=== PATIENT | female | born 1985 | race Caucasian/White ===

== ENCOUNTER → 2021-04-20 07:50 | Outpatient (CLI) | payer OTHER, BC, SELFPAY ==
--- NOTE | ~2021-04-20 | MR_ITS ---
EXAMINATION: MR foot RT wo/w con DATE: 04/20/2021 08:54 INDICATION: Right foot pain TECHNIQUE: Magnetic resonance imaging (MRI) of the right fore/mid foot was performed without intraven ous contrast. Sequences included axial, sagittal and coronal T1-weighted FSE, axial and coronal T2-we ighted FS FSE, sagittal fluid sensitive FSE STIR, axial T1-weighted FS FSE and postcontrast axial, sa gittal and coronal T1-weighted FS FSE. COMPARISON: None FINDINGS: Bone alignment is normal. Normal marrow signal throughout with no fracture, reactive edema or patholo gic marrow replacing process. Joint spaces appear relatively preserved with no joint effusions or syn ovitis. No enhancing erosions or other abnormal enhancing lesions. Lisfranc ligament complex as well as the collateral ligament complex at the metatarsophalangeal and interphalangeal joint spaces are no rmal. Visualized portions of the flexor and extensor tendons are normal. The marker indicating the re gion of maximal pain situated dorsal to the base of the first and second metatarsals. IMPRESSION: 1. Unremarkable MRI of the right foot. No etiology identified for right foot pain. Reviewed, dictated and finalized at location A. MANAGER IMPRESSION: 1. Unremarkable MRI of the right foot. No etiology identified for right foot pa in.
[2021-04-20 08:13] LABS: Estimated Glomerular Filt Rate > 60
== END ==
PROVIDERS: Visit Provider Podiatrist Foot & Ankle Surgery
DX: M79.671 Pain in right foot (principal)
CPT/HCPCS: 73720; A9577

== ENCOUNTER 2022-11-25 00:05 | Day surgery (SDC) | payer OTHER, BC, SELFPAY ==
[2022-11-18 15:25] VITALS: BMI 30.2
--- NOTE | 2022-11-18 15:33 | PC.NURSE ---
Report to the Outpatient Waiting Room, entrance under the green pavilion located off [facility], at time _0600_ on date 11/25/22_. Planned Procedure Time: _0730__. Time changes happen often and if your time is changed the preop area will call you the afternoon before. - You and your visitor will be asked to self-screen and do not enter if you have any COVID symptoms. - A mask is optional within the hospital at this time. Patients may have clear liquids (water, carbonated beverages, clear teas, apple juice) until 3 hours prior to surgery with a maximum of 20 ounces. - No food from midnight until time of surgery - Infants may have breast milk until 4 hours before surgery, infant formula 6 hours prior to surgery. - Children will be allowed to drink immediately following surgery. If applicable, please bring a bottle or sippy cup to assist with drinking. Juice, water, soda, and popsicles are readily available. For infants on formula, please bring formula the day of surgery. Pacifiers are allowed. Take the following medications with a SIP of water the morning of surgery: __BUPROPION, FLUOXETINE DO NOT STOP ANY OF YOUR OTHER PRESCRIPTION MEDICATIONS PRIOR TO SURGERY ?EXCEPT THE FOLLOWING Medications to discontinue per physician NONE Date to take last dose Please no make-up, nail urdu, hairspray, perfume, deodorant, or body powder the day of surgery. No jewelry (including any body piercings) or valuables the day of surgery, leave them at home. Please take a shower or bath the night before, or the morning of, surgery with an antibacterial soap. Wear comfortable, loose fitting clothing. Children are encouraged to wear pajamas. - Jewelry must be removed prior to entering the operating room. Rings and piercings that are not removed may be cut off. - The hospital will not accept responsibility for valuables. - Please leave all valuables, including medications, at home the day of surgery. If you are going home after surgery, a licensed local company flatbed truck driver must drive you home. - NO public transportation without another adult if you receive anesthesia. - We recommend that an adult stay with you for 24 hours following discharge. - We also recommend that you do not drive, make important decision, drink alcoholic beverages, or take any drugs that were not prescribed by your health care provider for at least 24 hours after your discharge time. For Pediatric surgeries, we recommend two adults accompany the child home. Follow any additional instructions given to you from your surgeon. If you or anyone in your household have experienced Covid symptoms in the past week, please notify your surgeon or the nurse liaison at the phone number below for possible testing. Telephone instructions given to PATIENT_and asked if any additional questions and then verbalized understanding. Patient advised to call surgeon office or pre surgery nurse liaison [phone] if any additional questions.
--- NOTE | 2022-11-24 16:28 | PM.IMHP ---
H&P: HPI History of Present Illness Date/Time: 11/24/22 16:28 7-year-old 2 para 2003 female presents for definitive treatment of heavy vaginal bleeding cramping clotting. She has been on control pills, though she has any increasing headaches and therefore we would like to have her come off that. We had discussed in the IUD but she does not desire. Therefore will proceed with hysteroscopy with endometrial ablation. She has had a tubal ligation in the past. Chief Complaint: Menometrorrhagia Review of Systems Review of Systems: All systems reviewed & are unremarkable except as noted in HPI and below PMFSH Past Medical History Medical History Anxiety Carpal tunnel syndrome, right upper limb Dizziness Heartburn IBS (irritable bowel syndrome) rx meds Surgical History Surgical History History of tubal ligation Family History Family History Mother Breast cancer Hypertension Grandparent Diabetes mellitus maternal grandfather Hypertension maternal grandmother Malignant neoplasm of lung paternal grandfather Malignant neoplasm of bone paternal grandmother Pulmonary embolism maternal grandmother Father Blood disorder Depression Social History Social History Smoking status: Never smoker Alcohol intake: current Alcohol use details: 2 PER MONTHS Substance use: never Substance use type: does not use Living arrangements: with family Additional living arrangements comments: 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/Education: 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 Gender identity (if verbalized by the patient): Female Sexual Orientation (if Verbalized by the Patient): Straight or Heterosexual Meds Home Medications and Allergies Home Medications Medication Instructions Recorded Confirmed Type pantoprazole 40 mg tablet,delayed 40 mg PO QAM PRN Acid Reflux 05/26/21 11/18/22 History release bupropion HCl 300 mg 24 hr tablet, 300 mg PO DAILY 11/18/22 11/18/22 History extended release eluxadoline 75 mg tablet (Viberzi) 75 mg PO DAILY 11/18/22 11/18/22 History fluoxetine 20 mg capsule 20 mg PO DAILY 11/18/22 11/18/22 History Allergies Allergy/AdvReac Type Severity Reaction Status Date / Time No Known Allergies Allergy Verified 11/18/22 15:22 Exam Const: General: cooperative and healthy appearing Resp: Effort & Inspection: normal respiratory effort Auscultation: clear to auscultation bilaterally Cardio: Rate: regular rate Rhythm: regular rhythm GI: Inspection: normal to inspection Auscultation: normal bowel sounds : External Female Exam: normal external appearance Speculum Exam - Vagina: normal appearance of the vagina Speculum Exam - Cervix: normal appearance of the cervix Bimanual exam- vagina & uterus: enlarged (8-10 week size) Bimanual Exam- Adnexa, other: normal adnexae Assessment and Plan Assessment and plan (1) Irregular bleeding: Code(s): N92.6 - Irregular menstruation, unspecified Status: Acute Assessment and Plan: Proceed with hysteroscopy with D&C Proceed with endometrial ablation
[2022-11-25 06:36] VITALS: BP 127/75; PULSE 80; RESP 16; TEMP 36.6; O2SAT 98
--- NOTE | 2022-11-25 06:53 | P.PNAN_ITS ---
Anes - Initial Pre Proc Eval Procedure: Operation Date: 11/25/22 08:30 Proposed Procedures p Hysteroscopy Dilation and Curettage with Shefali Endometrial Ablation - Vidal Lee MD Date/Time: 11/25/22 06:53 Surgeon: Vidal Lee MD Pre Op Diagnosis: Irg Bleeding Patient Data Age: 37 Gender: F Height: 1.63 m Weight: 80 kg Allergies Allergy/AdvReac Type Severity Reaction Status Date / Time No Known Allergies Allergy Verified 11/18/22 15:22 Home Medications Medication Instructions Recorded Confirmed Type pantoprazole 40 mg tablet,delayed 40 mg PO QAM PRN Acid Reflux 05/26/21 11/18/22 History release bupropion HCl 300 mg 24 hr tablet, 300 mg PO DAILY 11/18/22 11/18/22 History extended release eluxadoline 75 mg tablet (Viberzi) 75 mg PO DAILY 11/18/22 11/18/22 History fluoxetine 20 mg capsule 20 mg PO DAILY 11/18/22 11/18/22 History Patient hx anesthesia problems: none Family hx anesthesia problems: none Results Review: All pre-operative results and documents have been reviewed as part of the pre- operative evaluation. [facility] Past Medical History Medical History Anxiety Carpal tunnel syndrome, right upper limb Dizziness Heartburn IBS (irritable bowel syndrome) rx meds Surgical History Surgical History History of tubal ligation Family History Family History Mother Breast cancer Hypertension Grandparent Diabetes mellitus maternal grandfather Hypertension maternal grandmother Malignant neoplasm of lung paternal grandfather Malignant neoplasm of bone paternal grandmother Pulmonary embolism maternal grandmother Father Blood disorder Depression Social History Social History Smoking status: Never smoker Alcohol intake: current Alcohol use details: 2 PER MONTHS Substance use: never Substance use type: does not use Living arrangements: with family Additional living arrangements comments: 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/Education: 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 Gender identity (if verbalized by the patient): Female Sexual Orientation (if Verbalized by the Patient): Straight or Heterosexual Anes - Eval Final PreProcedure Day of Procedure 11/25/22 06:53 Patient weight: obese Heart: regular rate and rhythm Lungs: clear to auscultation Airway: Mallampati scale class II Neurological: alert and oriented Last oral intake: >/= 8 hours ASA classification: II Emergent: no Anesthetic plan: proceed Anesthesia type and monitoring: general GIVS and standard monitoring Results Review: All pre-operative results and documents have been reviewed as part of the pre- operative evaluation. Informed Consent: The patient's anesthetic plan and its attendant risks and benefits were discussed with the patient/family/POA. Questions were solicited and answers provided to the satisfaction of the patient/family/POA.
[2022-11-25] MEDS: ACETAMINOPHEN 500 MG TABLET 1000 MG PO (07:11)
[2022-11-25] MEDS: LACTATED RINGERS 1,000 ML 30 ML IV CONT (07:11)
[2022-11-25 07:16] LABS: Hematocrit 37.6 % (37.0-47.0); Hemoglobin 12.5 g/dL (12.0-15.0); Mean Corpuscular HGB Conc 33.2 g/dl (32-36); Mean Corpuscular Hemoglobin 30.4 pg (26-34); Mean Corpuscular Volume 91.5 fl (80-100); Mean Platelet Volume 11.6 fl (7.4-10.4); Platelet Count Result 205 k/mm3 (150-375); Red Blood Count 4.11 M/mm3 (4.2-5.4); Red Cell Distribution Width 11.8 % (11.5-14.5); White Blood Count 5.6 K/mm3 (4.5-10.0)
--- NOTE | 2022-11-25 08:31 | WPDHPUPDATE1 ---
History and Physical Update Update Date/Time: 11/25/22 08:31 History and Physical has been reviewed, including an updated exam of the patient. There are NO changes in the patient's condition. Risks, benefits, and alternatives have been discussed and questions answered. Patient agrees to proceed with procedure.
[2022-11-25] MEDS: ceFAZolin SODIUM 1 GM VIAL 2 GM IV PUSH (09:00)
--- NOTE | 2022-11-25 09:13 | W.PM.PROC2 ---
Procedure Note - Detailed Date of Procedure 11/25/22 Pre-op Diagnosis Irregular menstrual bleeding Post-op Diagnosis Same Procedure Performed 1. Hysteroscopy with uterine curettings 2. Endometrial ablation Surgeon Vidal Lee MD Anesthesia MAC Description of Procedure Patient prepped and draped usual manner for this procedure. Hysteroscope was placed with thickened tissue noted. Curettings were obtained and then the ablation instrument was placed cavity assessment performed instrument activated. At the end of the cycle hysteroscope was get place with destruction noted throughout. Patient tolerated procedure well was sent to recovery room in stable condition. Estimated Blood Loss 10 Drains No Packing No Pathology Yes Complications No immediate complications Condition Stable Disposition PACU [facility] Billing Surgery - Charge Forward: Surgery Billing
[2022-11-25 09:16] VITALS: BP 107/60; PULSE 75; RESP 14; O2SAT 99
[2022-11-25 09:45] VITALS: BP 104/60; PULSE 60; RESP 14; O2SAT 100
[2022-11-25] MEDS: oxyCODONE HCL (*CRX) 5 MG TAB IR PO (10:05)
[2022-11-25 10:15] VITALS: BP 112/66; PULSE 60; RESP 14
== END 2022-11-25 10:35 | disposition home or self-care (01) ==
PROVIDERS: PCP Internal Medicine; Visit Provider Obstetrics & Gynecology
PROC: 0U5B8ZZ Destruction of Endometrium, Via Natural or Artificial Opening Endoscopic (ICD-10-PCS; CPT 58563; principal; 2022-11-25 08:30)
DX: N92.6 Irregular menstruation, unspecified (principal); F41.9 Anxiety disorder, unspecified; K58.9 Irritable bowel syndrome, unspecified; E66.9 Obesity, unspecified; Z68.30 Body mass index [BMI] 30.0-30.9, adult
CPT/HCPCS: 58563; 36415; 85027; 88305; A9270; J0690; J1885; J2250; J2704; J3010; J7120

== ENCOUNTER 2024-02-15 15:50 | Outpatient (CLI) | payer OTHER, SELFPAY ==
--- NOTE | ~2024-02-15 | MM_ITS ---
EXAMINATION: MM screening ingrid BI w promise HISTORY: Screening TECHNIQUE: Craniocaudal and mediolateral oblique 3-D tomosynthesis images were obtained and synthetic 2-D images were generated. CAD analysis was submitted and interpreted. COMPARISON: No prior mammogram is available for comparison at this institution. BREAST PARENCHYMAL COMPOSITION: Dense: The breasts are heterogeneously dense, which may obscure small masses FINDINGS: There is no evidence of suspicious mass, calcification, or architectural distortion to sugg est malignancy in either breast. There has been no suspicious interval change. IMPRESSION: 1. No mammographic evidence of malignancy. 2. Recommend routine screening mammography in one year. BI-RADS Category 1: Negative Reviewed, dictated and finalized at location B. GER OF SUPPLY CHAIN
== END 2024-02-15 15:51 | disposition home or self-care (01) ==
LOC: MICIMG 15:51
PROVIDERS: PCP Internal Medicine; Visit Provider Obstetrics & Gynecology
DX: Z12.31 Encounter for screening mammogram for malignant neoplasm of breast (principal)
CPT/HCPCS: 77063; 77067

== ENCOUNTER 2025-02-04 16:31 | Outpatient (CLI) | payer OTHER, SELFPAY ==
--- OUTSIDE RECORDS SUMMARY | 2025-02-04 19:32 | XMS_ITS | Clinical Summary ---
Author Organization [facility]CLUD[facility] Address [address] [place] [id number] Care Team Providers Care Can Piler Name Role Phone Unavailable Primary Care Provider Unavailabl e Encounters Date Type Department Care Team Description 12/18/2024 External Device Data [facility] ABSTRACTION Provider, Abstract from Last 3 Months Social History Tobacco Use Types Packs/Day Years Used Date Smoking Tobacco: Never Assessed Comments Unknown Sex and Gender Information Value Date Recorded Sex Assigned at Not on file Legal Sex Female 10:02 AM CDT Gender Identity Not on file Sexual Orientation Not on file Plan of Treatment Health Maintenance Due Date Last Done Comments DTAP/TDAP/TD VACCINES (1 - Tdap) 08/12/2002 HEPATITIS B VACCINES (1 of 3 - 19+ 3-dose series) 08/12/2002 HPV/Cotest (21-29) 08/12/2004 CERVICAL CANCER SCREENING 08/12/2013 HPV/Cotest (30-65) 08/12/2013 PAP SMEAR 08/12/2013 BREAST CANCER SCREENING 2023 INFLUENZA VACCINE (#1) 2024 2, 11/24/2019, 02/19/2016, Additional history exists HPV VACCINES (No Doses Required) Completed Insurance [facility] INDIVIDUAL EXCHANGE [id number] [facility]
--- OUTSIDE RECORDS SUMMARY | 2025-02-04 19:32 | XMS_ITS | Clinical Summary ---
Author Organization [place] [id number] [place] Address [address] [place] [id number] Care Team Providers Care Beam Builder Name Role Phone Ronnie Sargent MD Primary Care Provider Allergies No known active allergies Medications gabapentin (NEURONTIN) 300 mg capsule GABAPENTIN 300 MG ORAL CAPSULE 0 Active levonorgestrel & ethinyl estradiol (AMETHIA) 0.15 mg-30 mcg tablets,dose pack,3 month 1 Active meclizine (ANTIVERT) 25 mg tablet Take 1 tablet (25 mg total) by mouth 3 (three) times a day as needed 7 Active omeprazole (PriLOSEC) 20 mg capsule [address] (PROTONIX) 40 mg EC tablet 1 Active venlafaxine XR (EFFEXOR-XR) 75 mg 24 hr capsule 1 Active buPROPion XL (WELLBUTRIN XL) 300 mg 24 hr tablet 4 Active Viberzi 75 mg tablet Take 1 tablet by mouth 4 Active FLUoxetine (PROzac) 20 mg capsule 4 Active Active Problems No known active problems Social History Tobacco Use Types Packs/Day Years Used Date Smoking Tobacco: Never Assessed Comments Unknown Sex and Gender Information Value Date Recorded Sex Assigned at Not on file Legal Sex Female 1:57 AM WEB DEVELOPMENT INTERN Gender Identity Not on file Sexual Orientation Not on file Last Filed Vital Signs Vital Sign Reading Time Taken Comments Blood Pressure 140/80 09/13/2023 11:00 AM CDT Pulse 86 09/13/2023 11:00 AM CDT Temperature 36.9 C (98.4 F) 09/13/2023 11:00 AM CDT Respiratory Rate 20 09/13/2023 11:00 AM CDT Oxygen Saturation 98% 09/13/2023 11:00 AM CDT Inhaled Oxygen Concentration - - Weight 77.1 kg (170 lb) 09/13/2023 11:00 AM CDT Height 175.3 cm (5' 9) 09/13/2023 11:00 AM CDT Body Mass Index 25.1 09/13/2023 11:00 AM CDT Plan of Treatment Health Maintenance Due Date Last Done Comments Breast Cancer Screening-Mammogram 1985 Cervical Cancer Screening 1985 Depression Screening 1985 Hepatitis C Screening 1985 DTaP/Tdap/Td Vaccine (1 - Tdap) 08/12/1994 Varicella Vaccines (1 of 2 - 13+ 2-dose series) 08/12/1996 Hepatitis B Screening 08/12/2001 Regular Well Visit/Exam 18-64 08/12/2001 HPV Vaccines (1 - 3-dose SCDM series) 08/12/2010 Covid-19 Vaccine (3 - 2024- season) 2024 05/17/2020, 04/19/2020 Influenza Vaccine (#1) 2024 , 11/24/2019, 12/27/2018, Additional history exists Pneumococcal vaccine <65 Aged Out No longer eligible based on patient's age to complete this topic Insurance [facility] CHOICE PLUS [facility] CHOICE OOS Member Subscriber Plan / Payer (Ef fective 2022-Present) Name:Maxim Adenha Relation to Subscriber:Spouse Name:LA ADEN Date of :1983 (Home) Address: [address] [place] [address] Payer ID:[id number] (NAIC) Type:[facility] Address: [address] [place] [id number] Care Teams Beam Builder Relationship Specialty Start Date End Date Ronnie Sargent MD [id number] [facility] [place] [address] PCP - General Internal Medicine 09/13/23
--- OUTSIDE RECORDS SUMMARY | 2025-02-04 19:34 | XMS_ITS | Clinical Summary ---
Author Organization [facility] Address [address] [place] [address] Care Team Providers Care Tool Adjuster Name Role Phone Unavailable Primary Care Provider Unavailabl e Source Comments [facility],non-owned Affiliates and Associated Physician Practices is amultiple site organization consisting of ambulatory clinics and hospital sitesin [place], [place], [place] and [place]. This disclosure is being madepursuant to the Care Everywhere program and may not contain all information available regarding this patient. Last updated 17.[facility] Allergies No known active allergies Medications * Be aware that medications may not be up to date on this document. Alwaysverify current medications with the patient. venlafaxine (EFFEXOR) 37.5 MG tablet Take 75 mg by mouth 3 times daily with meals Active amoxicillin (AMOXIL) 500 MG capsule Take 500 mg by mouth every 8 hours Active meclizine (ANTIVERT) 25 MG tablet Take 1 Tab by mouth 3 times daily as needed for Dizziness 20 Tab 7 Active aspirin-acetami nophen-caffeine 250-250-65 MG tablet Take 1 Tab by mouth every 4 hours as needed for Headache 20 Tab 7 Active Immunizations Immunization Administration Dates Next Due FLU VACCINE QUAD IIV4 PF ID 02/19/2016 Social History Tobacco Use Types Packs/Day Years Used Date Smoking Tobacco: Never Smokeless Tobacco: Never Comments Unknown Sex and Gender Information Value Date Recorded Sex Assigned at Not on file Legal Sex Female 10:29 AM SUPERVISORY FORESTER Gender Identity Not on file Sexual Orientation Not on file Last Filed Vital Signs Vital Sign Reading Time Taken Comments Blood Pressure 96/68 04/16/2017 2:45 PM SUPERVISORY FORESTER Pulse 87 04/16/2017 2:45 PM SUPERVISORY FORESTER Temperature 36.8 C (98.2 F) 04/16/2017 2:45 PM SUPERVISORY FORESTER Respiratory Rate 16 04/16/2017 2:45 PM SUPERVISORY FORESTER Oxygen Saturation 98% 04/16/2017 2:45 PM SUPERVISORY FORESTER Inhaled Oxygen Concentration - - Weight 74.8 kg (165 lb) 04/16/2017 2:45 PM SUPERVISORY FORESTER Height 162.6 cm (5' 4) 04/16/2017 2:45 PM SUPERVISORY FORESTER Body Mass Index 28.32 04/16/2017 2:45 PM SUPERVISORY FORESTER Plan of Treatment Health Maintenance Due Date Last Done Comments LIPID TESTING 1985 MAMMOGRAM 1983 HIV SCREENING 08/12/1998 HEPATITIS C SCREENING 08/08/2001 DTAP/TDAP/TD VACCINES (1 - Tdap) 08/12/2002 HEPATITIS B VACCINE (1 of 3 - 19+ 3-dose series) 08/12/2002 PAP SMEAR 08/12/2004 HPV VACCINE (1 - 3-dose SCDM series) 08/12/2010 DEPRESSION SCREENING 02/29/2024 COVID-19 VACCINE (1 - 2024-2 6 season) 2024 INFLUENZA VACCINE (#1) 2024 7, 02/19/2016 ZOSTER VACCINE (1 of 2) 08/12/2033 HIB VACCINE Aged Out No longer eligi ble based on patient's age to complete this topic MENINGOCOCCAL (Group B) VACCINE SHARED DECISION-MAKING Aged Out No longer eligible based on patient's age to complete this topic MENINGOCOCCAL GROUPS A/C/Y/W VACCINE Aged Out No longer eligible b ased on patient's age to complete this topic PNEUMOCOCCAL VACCINE Aged Out No long er eligible based on patient's age to complete this topic Insurance [facility] [place] [address] [facility]
--- OUTSIDE RECORDS SUMMARY | 2025-02-04 19:34 | XMS_ITS | Encounter Summary ---
Author Organization [facility] Address [address] [place] [address] Care Team Providers Care Bear Keeper Name Role Phone Unavailable Primary Care Provider Unavailabl e Encounter Details Date Type Department Care Team (Late st Contact Info) Description 03/11/2023 Lab Requisition [facility] [address] [place] [address] Vaughn Matias MD [address] [place] [address] Social History Tobacco Use Types Packs/Day Years Used Date Smoking Tobacco: Never Smokeless Tobacco: Never Comments Unknown Sex and Gender Information Value Date Recorded Sex Assigned at Not on file Legal Sex Female 10:29 AM [employer] Gender Identity Not on file Sexual Orientation Not on file documented as of this encounter Plan of Treatment Not on file documented as of this encounter Procedures Procedure Name Priority Date/Time Associated Diagnosis Comments DERMATOPATHOLOGY Routine 03/09/2023 12:0 0 AM [employer] documented in this encounter Results * DERMATOPATHOLOGY (03/09/2023 12:00 AM [employer]) Case Report Dermatopathology Report Case: [id number] Authorizing Provider: Vaughn Matias MD Collected: 03/09/2023 12:00 AM Ordering Location: [facility] D[facility] Lab Received: 03/11/2023 04:37 PM Pathologist: Arnold Alaniz MD Specimen: Skin, epigastrium 4:15 PM [facility] [facility] DERMATOPATHOLOGY LABORATORY Final Diagnosis Specimen A. SKIN, epigastrium: EPIDERMOID CYST (L72.0) 4:15 PM [facility] DERMATOPATHOLOGY LABORATORY at [address] [employer] Clinical History R/O Epidermal Inclusion Cyst vs other Neoplasm. Check Margin 4:15 PM [facility] DERMATOPATHOLOGY LABORATORY Gross Description Specimen A: Received is one formalin filled container labeled with the patient's name and designated epigastrium. The specimen consists of a piece of skin 8x8x9 mm. The margin is inked green. The specimen is bisected lengthwise and submitted in 1 cassette. Jar 0. 4:15 PM [facility] DERMATOPATHOLOGY LABORATORY Microscopic Description Specimen A. SKIN, epigastrium: Within the dermis, there is a space lined by epithelium that resembles normal epidermis and the infundibular portion of the hair follicle. 4:15 PM [facility] DERMATOPATHOLOGY LABORATORY Disclaimer An external and internal positive and negative controls are appropriate for the histochemical, immunohistochemical and immunofluorescence stain(s) in this case (if any), except where stated explicitly. The performance characteristics of the stain(s) cited in this report were developed and its performance characteristic determined by the Dermatopathology Laboratory at [facility], directed by Dr. Mundo Alaniz. These tests need not be, and therefore are not, approved by the [place] Food and Drug Administration. The tests are used for clinical purposes. Billing Codes Specimen Charges Stain Charges 10944 1 4:15 PM [facility] DERMATOPATHOLOGY LABORATORY Embedded Images 4:15 PM [facility] DERMATOPATHOLOGY LABORATORY Pathology/Cytolog y TISSUE SPECIMEN FROM SKIN / Unknown 03/09/2023 03/11/2023 4:37 PM [employer] us Vaughn Matias MD LAB - PATHOLOGY/CYTOLOGY ORD ERABLES Final Result DERMATOPATHOLOGY LABORATORY [facility] - Department of Dermatology [address] [place] [address], [facility] [phone] documented in this encounter Visit Diagnoses Not on filedocumented in this encounter
--- OUTSIDE RECORDS SUMMARY | 2025-02-04 19:34 | XMS_ITS | Data Portability ---
[facility] Organization [facility] Address [address] [place] [address] Assessment No assessment recorded. Plan of Treatment Reminders Order Date Submit Date Provider Last Modified By Organization Details Last Modified Time Details Appointments None recorded . Lab pap, IG + HPV, cervical 2018 019 CORRIGAN [facility], 2022 Jon Frye, Carlos [facility], [place], [address], 9 16:09:06 urinalys is, dipstick 2018 019 [email or web address] In-Office Order, Internal Use Only DO Not Attach Compendium DO Not Attach Compendium, Do Not Delete/merge, [id number] 9 17:33:23 bacteria l vaginosi s panel, vaginal 2018 019 NATALIA [facility] (Centralized Electronic Ordering - All Locations), Patient Can Go To The Location Of Their Choice, [id number] 9 16:09:32 culture, vaginal/ rectal, streptoc occus group B 2018 019 NATALIA [facility] (Centralized Electronic Ordering - All Locations), Patient Can Go To The Location Of Their Choice, [id number] 9 16:09:33 urinalys is, dipstick 2016 017 ricarda In-Office Order, Internal Use Only DO Not Attach Compendium DO Not Attach Compendium, Do Not Delete/merge, [id number] 7 16:37:12 pregnanc y test, urine 2016 017 ricarda In-Office Order, Internal Use Only DO Not Attach Compendium DO Not Attach Compendium, Do Not Delete/merge, [id number] 7 16:37:12 pregnanc y test, urine 2015 016 ricarda In-Office Order, Internal Use Only DO Not Attach Compendium DO Not Attach Compendium, Do Not Delete/merge, [id number] 6 18:14:26 bacteria l vaginosi s + vaginiti s panel, vaginal - Please send copy of results via fax to [facility] at 2014 015 [email or web address], [address] [place] [address], [address], [place], [address], 6 12:10:48 HSV (1+2) DNA, qual, PCR, unspecif ied specimen - Please send copy of results via fax to [facility] at [phone] 2014 015 [email or web address], [address] [place] [address], [address], [place], [address], 6 12:10:48 culture, vaginal/ rectal, streptoc occus group B - Please send copy of results via fax to [facility] at 2014 015 [email or web address], [address] [place] [address], [address], [place], [address], 6 12:10:49 pap, IG + HPV, cervical 2014 015 [email or web address], [address] [place] [address], [address], [place], [address], 6 12:10:49 pregnanc y test, urine 2015 015 [email or web address] In-Office Order, Internal Use Only DO Not Attach Compendium DO Not Attach Compendium, Do Not Delete/merge, [id number] 6 07:53:40 Referral None recorded . Procedures None recorded . Surgeries None recorded . Imaging None recorded . Medication Orders multivit crooks tablet 2018 019 [facility], [address] [place], [address], 9 17:03:08 Calcium with Vitamin D 600 mg-10 mcg (400 unit) tablet 2018 019 [facility], [address] [place], [address], 9 17:03:10 Seasoniq ue 0.15 mg-30 mcg (84)/10 mcg(7) tablets, 3 month dose pack 2018 019 [facility], [address] [place], [address], 9 17:02:57 Linzess 145 mcg capsule 2016 017 [facility], [address] [place], [address], 9 16:21:[address] Fe 1-20 (5)/1-30 (7)/1mg- 35mcg(9) tablet 2016 017 [facility], [address] [place], [address], 9 16:21:20 Linzess 145 mcg capsule 2015 016 [facility], [address] [place] [address], [address], [id number], 9 16:21:11 Lybrel (28) 90 mcg-20 mcg tablet 2015 016 [place] [address] [facility], [address] [place] [address], [facility] [address], [place], [id number], 7 16:05:40 Linzess 145 mcg capsule 2014 015 [facility], [address] [place], [address], 9 16:21:11 Patient TargetsNo targets recorded. Patient Instructions Encounter Date Encounter Id Patient Instructions Last Modified By Organization Details Last Modified Time 02/25/2015 [id number] constipation: care instructions Not available 03/07/2015 12:10:49 intrauterine device (IUD) insertion: care instructions Not available 03/07/2015 12:10:49 Patient to decid e if she wants Tubal Sterilization or new IUD replacement mwasserman Not available 02/25/2015 21:27:56 03/31/2015 [id number] irritable bowel syndrome: care instructions mwasserman Not available 03/31/2015 18:14:26 01/13/2017 [id number] influenza (flu) vaccine: care instructions Not available 01/14/2017 11:21:45 irritable bowel syndrome: care instructions Not available 01/13/2017 17:06:24 Reason for Referral None Reported. Results Created Date Observation Date Name Description Value Unit Range Abnormal Flag Note LastModifiedBy Organization Detail LastModifiedTime 01/17/2001/16/2019 urina lysis , dipst ick Leukocytes Negati ve Not Available In-Office Order Internal Use Only DO Not Attach Compendium DO Not Attach Compendium, Do Not Delete/merge, [id number] 01/16/2019 16:47:42 01/17/2001/16/2019 urina lysis , dipst ick Nitrite positi ve Not Available In-Office Order Internal Use Only DO Not Attach Compendium DO Not Attach Compendium, Do Not Delete/merge, [id number] 01/16/2019 16:47:42 01/17/20 19 01/16/2019 urina lysis , dipst ick Urobilinogen 1 Not Available In-Of fice Order Internal Use Only DO Not Attach Compendium DO Not Attach Compendium, Do Not Delete/merge, [id number] 01/16/2019 16:47:42 01/17/2001/16/2019 urina lysis , dipst ick Protein Negati ve Not Available In-Office Order Internal Use Only DO Not Attach Compendium DO Not Attach Compendium, Do Not Delete/merge, [id number] 01/16/2019 16:47:42 01/17/2001/16/2019 urina lysis , dipst ick pH 6.5 Not Available In-Office Order Internal Use Only DO Not Attach Compendium DO Not Attach Compendium, Do Not Delete/merge, 01/16/2019 16:47:42 01/17/2001/16/2019 urina lysis , dipst ick Blood Non-He molyze d: Trace Not Available In-Office Order Internal Use Only DO Not Attach Compendium DO Not Attach Compendium, Do Not Delete/merge, 01/16/2019 16:47:42 01/17/20 19 01/16/2019 urina lysis , dipst ick Specific [place] 1.020 Not Available In-Off ice Order Internal Use Only DO Not Attach Compendium DO Not Attach Compendium, Do Not Delete/merge, 01/16/2019 16:47:42 01/17/20 19 01/16/2019 urina lysis , dipst ick Ketone Negati ve Not Available In-Office Order Internal Use Only DO Not Attach Compendium DO Not Attach Compendium, Do Not Delete/merge, 01/16/2019 16:47:42 01/17/20 19 01/16/2019 urina lysis , dipst ick Bilirubin Negati ve Not Available In-Office Order Internal Use Only DO Not Attach Compendium DO Not Attach Compendium, Do Not Delete/merge, 01/16/2019 16:47:42 01/17/2001/16/2019 urina lysis , dipst ick Glucose Negati ve Not Available In-Office Order Internal Use Only DO Not Attach Compendium DO Not Attach Compendium, Do Not Delete/merge, [id number] 01/16/2019 16:47:42 01/14/20 17 01/13/2017 pregn alyssa test, urine HCG negati ve Not Available In-Office Order Internal Use Only DO Not Attach Compendium DO Not Attach Compendium, Do Not Delete/merge, [id number] 01/13/2017 16:06:27 01/14/20 17 01/13/2017 urina lysis , dipst ick Leukocytes Trace Not Available In-Offi ce Order Internal Use Only DO Not Attach Compendium DO Not Attach Compendium, Do Not Delete/merge, [id number] 01/13/2017 16:05:47 01/14/20 17 01/13/2017 urina lysis , dipst ick Nitrite negati ve Not Available In-Office Order Internal Use Only DO Not Attach Compendium DO Not Attach Compendium, Do Not Delete/merge, 01/13/2017 16:05:47 01/14/20 17 01/13/2017 urina lysis , dipst ick Urobilinogen 1 Not Available In-Of fice Order Internal Use Only DO Not Attach Compendium DO Not Attach Compendium, Do Not Delete/merge, 01/13/2017 16:05:47 01/14/20 17 01/13/2017 urina lysis , dipst ick Protein Negati ve Not Available In-Office Order Internal Use Only DO Not Attach Compendium DO Not Attach Compendium, Do Not Delete/merge, 01/13/2017 16:05:47 01/14/20 17 01/13/2017 urina lysis , dipst ick pH 7.0 Not Available In-Office Order Internal Use Only DO Not Attach Compendium DO Not Attach Compendium, Do Not Delete/merge, 01/13/2017 16:05:47 01/14/20 17 01/13/2017 urina lysis , dipst ick Blood Non-He molyze d: Trace Not Available In-Office Order Internal Use Only DO Not Attach Compendium DO Not Attach Compendium, Do Not Delete/merge, 01/13/2017 16:05:47 01/14/20 17 01/13/2017 urina lysis , dipst ick Specific [place] 1.015 Not Available In-Off ice Order Internal Use Only DO Not Attach Compendium DO Not Attach Compendium, Do Not Delete/merge, 01/13/2017 16:05:47 01/14/20 17 01/13/2017 urina lysis , dipst ick Ketone Negati ve Not Available In-Office Order Internal Use Only DO Not Attach Compendium DO Not Attach Compendium, Do Not Delete/merge, [id number] 01/13/2017 16:05:47 01/14/20 17 01/13/2017 urina lysis , dipst ick Bilirubin Negati ve Not Available In-Office Order Internal Use Only DO Not Attach Compendium DO Not Attach Compendium, Do Not Delete/merge, [id number] 01/13/2017 16:05:47 01/14/20 17 01/13/2017 urina lysis , dipst ick Glucose Negati ve Not Available In-Office Order Internal Use Only DO Not Attach Compendium DO Not Attach Compendium, Do Not Delete/merge, [id number] 01/13/2017 16:05:47 03/31/19 16 03/31/2015 pregn alyssa test, urine HCG negati ve Not Available In-Office Order Internal Use Only DO Not Attach Compendium DO Not Attach Compendium, Do Not Delete/merge, [id number] 03/31/2015 14:40:29 03/07/19 16 03/07/2015 pregn alyssa test, urine HCG negati ve Not Available In-Office Order Internal Use Only DO Not Attach Compendium DO Not Attach Compendium, Do Not Delete/merge, [id number] 03/07/2015 12:10:49 02/27/20 15 03/02/2015 bacte rial vagin osis + vagin itis panel , vagin al trich vag by LUDWIG NEGATI VE negati ve Not Available [facility] ([facility]) [address] [place], [address], 03/03/2015 16:18:28 02/27/20 15 03/02/2015 bacte rial vagin osis + vagin itis panel , vagin al chlamydia trachomatis, LUDWIG NEGATI VE negati ve Not Available [facility] ([facility]) [address], [place], [address], 03/03/2015 16:18:28 02/27/20 15 03/02/2015 bacte rial vagin osis + vagin itis panel , vagin al neisseria gonorrhoeae, LUDWIG NEGATI VE negati ve Not Available [facility] ([facility]) [address] [place], [address], 03/03/2015 16:18:28 02/27/20 15 03/03/2015 bacte rial vagin osis + vagin itis panel , vagin al atopobium vaginae LOW - 0 score Not Available [facility] ([facility]) [address], [place], [address], 03/03/2015 16:18:28 02/27/20 15 03/03/2015 bacte rial vagin osis + vagin itis panel , vagin al bvab 2 LOW - 0 score Not Available [facility] ([facility]) [address] [place], [address], 03/03/2015 16:18:28 02/27/20 15 03/03/2015 bacte rial vagin osis + vagin itis panel , vagin al megasphaera 1 LOW - 0 score CALCU LATE TOTAL SCORE BY PAMELA Brady THE 3 INDIV IDUAL BACTE RIAL VAGIN OSIS (BV) MARKE R SCORE S TOGET HER. TOTAL SCORE IS INTER PRETE D FOLLO WS: TOTAL SCORE 0-1: INDIC ATES THE ABSEN CE OF BV. TOTAL SCORE 2: INDET ERMIN ATE FOR BV. ADDIT IONAL CLINI CORRINE DATA SHOUL D BE EVALU ATED TO ESTAB BUZZ A DIAGN OSIS. TOTAL SCORE 3-6: INDIC ATES THE PRESE NCE OF BV. THIS TEST WAS DEVEL OPED AND ITS PERFO RMANC E ARIC CTERI STICS DETER MINED BY [facility]. IT HAS NOT BEEN CLEAR ED OR APPRO TE BY THE FOOD AND DRUG ADMIN ISTRA TION. THE FDA HAS DETER MINED THAT SUCH CLEAR ANCE OR APPRO HORTENCIA IS NOT NECES VARUN. Not Available [facility] ([facility]) [address] [place], [address], 03/03/2015 16:18:28 02/27/20 15 03/03/2015 bacte rial vagin osis + vagin itis panel , vagin al ethan albicans, LUDWIG NEGATI VE negati ve Not Available [facility] ([facility]) [address] [place], [address], 03/03/2015 16:18:28 02/27/20 15 03/03/2015 bacte rial vagin osis + vagin itis panel , vagin al ethan glabrata, LUDWIG NEGATI VE negati ve THIS TEST WAS DEVEL OPED AND ITS PERFO RMANC E ARIC CTERI STICS DETER MINED BY [facility]. IT HAS NOT BEEN CLEAR ED OR APPRO TE BY THE FOOD AND DRUG ADMIN ISTRA TION. THE FDA HAS DETER MINED THAT SUCH CLEAR ANCE OR APPRO HORTENCIA IS NOT NECES VARUN. Not Available [facility] ([facility]) [address], [place], [address], 03/03/2015 16:18:28 02/27/20 15 02/28/2015 HSV (1+2) DNA, qual, PCR, unspe cifie d speci men hsv 1 LUDWIG NEGATI VE negati ve Not Available [facility] ([facility]) [address] [place], [address], 03/03/2015 16:18:29 02/27/20 15 02/28/2015 HSV (1+2) DNA, qual, PCR, unspe cifie d speci men hsv 2 LUDWIG NEGATI VE negati ve Not Available [facility] ([facility]) [address] [place], [address], 03/03/2015 16:18:29 02/27/20 15 02/28/2015 cultu re, vagin al/re ctal, strep tococ cus group B strep gp B LUDWIG POSITI VE negati ve abnormal PENIC ILLIN G, AMPIC ILLIN , OR CEFAZ GHAZALA ARE INDIC ATED FOR INTRA PARTU M PROPH YLAXI S OF PERIN ATAL GROUP B STREP (GBS) COLON IZATI ON. REFLE X SUSCE PTIBI LITY TESTI NG SHOUL D BE PERFO RMED PRIOR TO USE OF CLIND AMYCI N ONLY ON GBS ISOLA EKATERINA FROM PENIC ILLIN -LM RGIC WOMEN WHO ARE CONSI DERED A HIGH RISK FOR ANAPH YLAXI S. TREAT MENT WITH VANCO MYCIN WITHO UT ADDIT IONAL TESTI NG IS WARRA NTED IF RESIS TANCE TO CLIND AMYCI N IS NOTED . (CDC GUIDE LINES , MMWR, 2009) Not Available [facility] ([facility]) [address] [place], [address], 03/03/2015 16:18:30 02/27/20 15 03/02/2015 pap, IG + HPV, cervi corrine diagnosis: ALLIE SUAREZ FOR INTRA EPITH ELIAL LESTREMAYNE N AND DARIN CARABALLO . Not Available [facility] ([facility]) [address] [place], [address], 03/04/2015 06:10:05 02/27/20 15 03/02/2015 pap, IG + HPV, cervi corrine specimen adequacy: ALLIE Gilliland SATIS FACTO RY FOR EVALU ATION . ENDOC ERVIC AL AND/O R SQUAM OUS METAP LASTI C CELLS (ENDO CERVI CORRINE COMPO NENT) ARE PRESE NT. Not Available [facility] ([facility]) [address] [place], [address], 03/04/2015 06:10:05 02/27/20 15 03/02/2015 pap, IG + HPV, cervi corrine clinician provided ICD10: ALLIE Gilliland Z01.4 19 Not Available [facility] ([facility]) [address] [place], [address], 03/04/2015 06:10:05 02/27/20 15 03/02/2015 pap, IG + HPV, cervi corrine performed by: ALLIE MAHONEY OND, CYTOT TALAT Gilliland (ASCP ) Not Available [facility] ([facility]) [address] [place], [address], 03/04/2015 06:10:05 02/27/20 15 03/02/2015 pap, IG + HPV, cervi corrine . . Not Available [facility] ([facility]) [address], [place], [address], 03/04/2015 06:10:05 02/27/20 15 03/02/2015 pap, IG + HPV, cervi corrine note: COMMEN T THE PAP SMEAR IS A SCREE KYRA TEST DESIG KAREEM TO AID IN THE DETEC TION OF POAL LIGNA NT AND MALIG NANT CONDI TIONS OF THE UTERI NE CERVI X. IT IS NOT A DIAGN OSTIC PROCE DURE AND SHOUL D NOT BE USED THE SOLE MEANS OF DETEC TING CERVI CORRINE CANCE R. BOTH FALSE -POSI TIVE AND FALSE -NEGA TIVE REPOR TS DO OCCUR . Not Available [facility] ([facility]) [address] [place], [address], 03/04/2015 06:10:05 02/27/20 15 03/02/2015 pap, IG + HPV, cervi corrine test methodology: COMMEN T THIS LIQUI D BASED THINP REP(R ) PAP TEST WAS SCREE KAREEM WITH THE USE OF AN IMAGE GUIDE Diamante Barrett. Not Available [facility] ([facility]) [address] [place], [address], 03/04/2015 06:10:05 02/27/20 15 03/03/2015 pap, IG + HPV, cervi corrine HPV aptima NEGATI VE negati ve THIS TEST DETEC TS FOURT EEN HIGH- RISK HPV TYPES (16/1 8/31/ 33/35 /39/4 5/ 51/52 /56/5 8/59/ 66/68 ) WITHO UT DIFFE RENTI ATION . Not Available [facility] ([facility]) [address], [place], [address], 03/04/2015 06:10:05 11/01/18/2019 bacte rial vagin osis panel , vagin al trich vag by LUDWIG Negati ve negati ve Not Available [facility] ([facility]) [address] [place], [address], 01/19/2019 16:09:32 01/17/20 19 01/18/2019 bacte rial vagin osis panel , vagin al chlamydia trachomatis, LUDWIG Negati ve negati ve Not Available [facility] ([facility]) [address] [place], [address], 01/19/2019 16:09:32 01/17/20 19 01/18/2019 bacte rial vagin osis panel , vagin al neisseria gonorrhoeae, LUDWIG Negati ve negati ve Not Available [facility] ([facility]) [address] [place], [address], 01/19/2019 16:09:32 01/17/20 19 01/18/2019 bacte rial vagin osis panel , vagin al hsv 1 LUDWIG Negati ve negati ve Not Available [facility] ([facility]) [address] [place], [address], 01/19/2019 16:09:32 01/17/20 19 01/18/2019 bacte rial vagin osis panel , vagin al hsv 2 LUDWIG Negati ve negati ve Not Available [facility] ([facility]) [address] [place], [address], 01/19/2019 16:09:32 01/17/20 19 01/19/2019 bacte rial vagin osis panel , vagin al atopobium vaginae Low - 0 score Not Available [facility] ([facility]) [address] [place], [address], 01/19/2019 16:09:32 01/17/20 19 01/19/2019 bacte rial vagin osis panel , vagin al bvab 2 Low - 0 score Not Available [facility] ([facility]) [address], [place], [address], 01/19/2019 16:09:32 01/17/20 19 01/19/2019 bacte rial vagin osis panel , vagin al megasphaera 1 Low - 0 score Calcu late total score by pamela brady the 3 indiv idual bacte rial vagin osis (BV) marke r score s toget her. Total score is inter prete d as follo ws: Total score 0-1: Indic ates the absen ce of BV. Total score 2: Indet ermin ate for BV. Addit ional clini corrine data shoul d be evalu ated to estab buzz a diagn osis. Total score 3-6: Indic ates the prese nce of BV. This test was devel oped and its perfo rmanc e aric cteri stics deter mined by [facility]. It has not been clear ed or appro te by the Food and Drug Admin istra tion. The FDA has deter mined that such clear ance or appro hortencia is not neces varun. Not Available [facility] ([facility]) [address], [place], [address], 01/19/2019 16:09:32 01/17/20 19 01/19/2019 bacte rial vagin osis panel , vagin al ethan albicans, LUDWIG Negati ve negati ve Not Available [facility] ([facility]) [address] [place], [address], 01/19/2019 16:09:32 01/17/20 19 01/19/2019 bacte rial vagin osis panel , vagin al ethan glabrata, LUDWIG Negati ve negati ve This test was devel oped and its perfo rmanc e aric cteri stics deter mined by [employer] [facility]. It has not been clear ed or appro te by the Food and Drug Admin istra tion. The FDA has deter mined that such clear ance or appro hortencia is not neces varun. Not Available [facility] ([facility]) [address], [place], [address], 01/19/2019 16:09:32 01/17/20 19 01/18/2019 cultu re, vagin al/re ctal, strep tococ cus group B strep gp B LUDWIG Positi ve negati ve abnormal [facility] Cont[facility] Pre[facility] ntion ([facility]) and Ameri can Congr ess of Obste trici ans and Gynec ologi sts (ACOG ) guide lines for preve ntion of perin atal group B strep tococ corrine (GBS) disea se speci fy co-co llect ion of a vagin al and recta l swab speci men to maxim ize sensi tivit y of GBS detec tion. Per the [facility] and [facility], swabb ing both the lower vagin a and rectu m subst antia lly incre ases the yield of detec tion keren red with sampl ing the vagin a alone . Penic illin G, ampic illin , or cefaz ghazala are indic ated for intra partu m proph ylaxi s of perin atal GBS colon izati on. Refle x susce ptibi lity testi ng shoul d be perfo rmed prior to use of clind amyci n only on GBS isola ekaterina from penic illin -lm rgic women who are consi dered a high risk for anaph ylaxi s. Treat ment with vanco mycin witho ut addit ional testi ng is warra nted if resis tance to clind amyci n is noted . Not Available [facility] ([facility]) [address], [place], [address], 01/19/2019 16:09:33 01/17/20 19 01/19/2019 pap, IG + HPV, cervi corrine HPV aptima Negati ve negati ve This nucle ic acid ampli ficat ion test detec ts fourt een high- risk HPV types (16,1 8,31, 33,35 ,39,4 5,51, 52,56 ,58,5 9,66, 68) witho ut diffe renti ation . Not Available [facility] ([facility]) [address], [place], [address], 01/22/2019 16:09:06 01/17/2001/22/2019 pap, IG + HPV, cervi corrine diagnosis: Allie gilliland UNSAT ISFAC TORY FOR EVALU ATION . Not Available [facility] ([facility]) [address], [place], [address], 01/22/2019 16:09:06 01/17/2001/22/2019 pap, IG + HPV, cervi corrine recommendati on: Allie Figueroa st follo w up as clini sandip appro priat e. Not Available [facility] ([facility]) [address], [place], [address], 01/22/2019 16:09:06 01/17/2001/22/2019 pap, IG + HPV, cervi corrine specimen adequacy: Allie gilliland Speci men proce ssed and exami kareem but unsat isfac tory for evalu ation of epith elial abnor malit y becau se of insuf ficie nt cellu larit y. Not Available [facility] ([facility]) [address], [place], [address], 01/22/2019 16:09:06 01/17/20 19 01/22/2019 pap, IG + HPV, cervi corrine clinician provided ICD10: Allie gilliland Z20.2 Z01.4 19 Not Available [facility] ([facility]) [address], [place], [address], 01/22/2019 16:09:06 01/17/20 19 01/22/2019 pap, IG + HPV, cervi corrine performed by: Saeed Matos (ASCP ) Not Available [facility] ([facility]) [address] [place], [address], 01/22/2019 16:09:06 01/17/20 19 01/22/2019 pap, IG + HPV, cervi corrine QC reviewed by: Allie holland, Joana visor y Cytot talat gilliland (ASCP ) Not Available [facility] ([facility]) [address] [place], [address], 01/22/2019 16:09:06 01/17/20 19 01/22/2019 pap, IG + HPV, cervi corrine . . Not Available [facility] ([facility]) [address], [place], [address], 01/22/2019 16:09:06 01/17/20 19 01/22/2019 pap, IG + HPV, cervi corrine note: Allie gilliland The Pap smear is a scree kyra test desig kareem to aid in the detec tion of opal ligna nt and malig nant condi tions of the uteri ne cervi x. It is not a diagn ostic proce dure and shoul d not be used as the sole means of detec ting cervi corrine cance r. Both false -posi tive and false -nega tive repor ts do occur . Not Available [facility] ([facility]) [address], [place], [address], 01/22/2019 16:09:06 01/17/20 19 01/22/2019 pap, IG + HPV, cervi corrine test methodology: Allie gilliland This liqui d based ThinP rep(R ) pap test was scree kareem with the use of an image guide d syste m. Not Available [facility] ([facility]) [address] [place], [address], 01/22/2019 16:09:06 Result Notes None recorded. 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 Procedures Surgical History Date Name Laterality Status Provider Name and Address Organization Details Recorded Time 9 Date of Last Pap Smear completed Consuelo Serrano MA [facility] 01/16/2019 16:06:37 6 Tubal Ligation completed Consuelo Serrano MA [facility] 01/13/2017 16:07:36 5 Carpal tunnel surgery completed Consuelo Serrano MA [facility] 01/16/2019 16:24:11 Imaging Results None recorded. Procedure Notes None recorded. Medical Equipment None Reported. Allergies No known drug allergies Medications Name Sig Start Date Stop Date Status Note LastModified by Organization Details LastModified Time Prescription - New 01/13 completed Not Available Not Available Not Available multivitamin tablet Take 1 tablet every day by oral route. 2018 active Not Available Not Available Not Avai lable amoxicillin 500 mg capsule active Not Available Not Available Not Available venlafaxine ER 75 mg capsule,exte nded release 24 hr active Not Available Not Available Not Available benzonatate 200 mg capsule active Not Available Not Available Not Available levonorgestr el-ethinyl estradiol 0.1 mg-20 mcg tablet TAKE 1 TABLET BY MOUTH EVERY DAY 01/16 completed Not Available Not Available Not Available prednisone 20 mg tablet active Not Available Not Available Not Available Zithromax Z-Ovidio 250 mg tablet TAKE 2 TABLETS (500 MG) BY ORAL ROUTE ONCE DAILY FOR 1 DAY THEN 1 TABLET (250 MG) BY ORAL ROUTE ONCE DAILY FOR 4 DAYS 01/13 completed Not Available Not Available Not Available venlafaxine ER 150 mg capsule,exte nded release 24 hr 01/13 completed Not Available Not Available Not Available penicillin V potassium 500 mg tablet Take 1 tablet twice a day by oral route. active Not Available Not Available No t Available omeprazole 20 mg capsule,thong yed release active Not Available Not Available Not Available methylpredni solone 4 mg tablets in a dose pack 01/13 completed Not Available Not Available Not Available dicyclomine 10 mg capsule Take 1 capsule 3 times a day by oral route as needed. 01/13 completed Not Available Not Available Not Available nitrofuranto in monohydrate/ macrocrystal s 100 mg capsule Take 1 capsule every 12 hours by oral route for 10 days. active Not Available Not Available No t Available lactulose 10 gram/15 mL oral solution Take 15 mL every day by oral route. 01/13 completed Not Available Not Available Not Available Seasonique 0.15 mg-30 mcg (84)/10 mcg(7) tablets,3 month dose pack Take 1 tablet(s ) every day by oral route. 2020 active Not Available Not Available Not Avai lable Lybrel (28) 90 mcg-20 mcg tablet Take 1 tablet every day by oral route. 01/13 completed Not Available Not Available Not Available Tri-Legest Fe 1-20 (5)/1-30(7)/ 1mg-35mcg(9) tablet Take 1 tablet every day by oral route for 28 days. 01/16 completed Not Available Not Available Not Available Calcium with Vitamin D 600 mg-10 mcg (400 unit) tablet Take 1 tablet twice a day by oral route. 2018 active Not Available Not Available Not Avai lable Natazia 3 mg/2 mg-2 mg/2 mg-3 mg/1 mg tablet Take 1 tablet every day by oral route for 28 days. active Not Available Not Available No t Available Linzess 145 mcg capsule Take 1 capsule every day by oral route. 01/16 completed Not Available Not Available Not Available Linzess 72 mcg capsule ONCE A DAY 01/16 completed Not Available Not Available Not Available Vitals Date Recorded Body height Body mass index (BMI) Body weight Systolic And Diastolic Provider Name and Address Organization Details Last Updated DateTime 03/31/2015 162.56 cm 26.4 kg/m2 42536.224 98 g 124/62 mm[Hg] Neha Tilley MA [facility] 03/31/2015 14:42:25 Date Recorded Body height Body mass index (BMI) Body weight Systolic And Diastolic Provider Name and Address Organization Details Last Updated DateTime 01/13/2017 162.56 cm 28 kg/m2 50138.56 g 114/72 mm[Hg] Consuelo Serrano MA [facility] 01/13/2017 16:13:14 Date Recorded Body height Body mass index (BMI) Body weight Systolic And Diastolic Provider Name and Address Organization Details Last Updated DateTime 01/16/2019 162.56 cm 29.2 kg/m2 97331.7 g 104/72 mm[Hg] Consuelo Serrano MA [facility] 01/16/2019 16:28:27 Date Recorded Body height Body mass index (BMI) Body weight Provider Name and Address Organization Details Last Updated DateTime 02/25/2015 162.56 cm 26.1 kg/m2 45557.00438 g Neha Tilley MA [facility] 02/25/2015 15:54:40 Date Recorded Systolic And Diastolic Provider Name and Address Organization Details Last Updated DateTime 02/25/2015 100/60 mm[Hg] Lizz Jung MA [facility] 02/26/2015 19:36:51 Social History Question Answer Notes LastModified by Organizat ion Details LastModified Time Tobacco Smoking Status Never Smoker Neha Tilley MA [facility] 02/25/2015 16:01:29 Do You Have An Advance Directive? No Information not available 02/25/2015 Is Blood Transfusion Acceptable In An Emergency? Yes Information not available 02/25/2015 What Is Your Level Of Caffeine Consumption? Occasional Information not available 02/25/2015 How Much Tobacco Do You Chew? None Information not available 02/25/2015 What Type Of Diet Are You Following? REGULAR Information not available 02/25/2015 Which Illicit Or Recreational Drugs Have You Used? None Information not available 02/25/2015 Education 4 Year College Informatio n not available 02/25/2015 Live Alone Or With Others? With Others Information not available 02/25/2015 What Was The Date Of Your Most Recent Tobacco Screening? 01/13/2017 Information not available 09/21/2018 How Many Children Do You Have? 2 Information not available 02/25/2015 Performs Monthly Self-breast Exam? Yes Information no t available 02/25/2015 Do You Use Protection During Sex? No Information not available 02/25/2015 What Is Your Relationship Status? Information not available 02/25/2015 Seat Belts Used Routinely Yes Information not available 02/25/2015 Are You Sexually Active? Yes Information not available 02/25/2015 How Much Tobacco Do You Smoke? No Information not available 01/16/2019 General Stress Level Low Information not available 03/31/2015 Do You Use Sunscreen Routinely? Yes Information not available 02/25/2015 On What Date Was Tobacco Cessation Counseling Provided? 01/16/2019 Information not available 01/16/2019 How Many Years Have You Smoked Tobacco? 0 Information not available 01/16/2019 Sex: Unknown Functional Status Question Answer Note LastModified by Organizat ion Details LastModified Time What is your level of alcohol consumption? Occasional Information not available 02/25/2015 Do you or have you ever used smokeless tobacco? Never used smokeless tobacco Information not available 01/16/2019 Are you currently employed? 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 Never used electronic cigarettes Information not available 01/16/2019 What is your exercise level? Occasional Information not available 02/25/2015 Mental Status None recorded. Family History Relationship Description Onset Age of this Age Resolved Age Notes LastModified by Organization Details LastModified Time Maternal Grandmother Hypercholest gina ricarda Not available 03/31 17:31:05 Maternal Grandmother Hypertensive disorder [email or web address] Not available 03/31 17:31:05 Maternal Grandfather Diabetes mellitus [email or web address] Not available 03/31 17:31:05 Maternal Grandfather Malignant neoplasm of colon 91 [email or web address] Not available 03/31 17:31:05 Medical History Condition Response Other N High Blood Pressure N Breast Cancer N Thyroid Problems N Kidney or Bladder Problems N Lung Disease N Depression N Blood Clots N GI Problems N Acne N Breast Problem N Eating Disorder N Anemia N Anesthesia Complications N Headaches/Migraines N Ovarian Cancer N Diabetes N Anxiety Disorder N Muscle, Joint, or Bone Problems N Blood Transfusions N Seizures/Epilepsy N Polyps N Infertility N Acid Reflux (GERD) N Cancer N Abuse/Domestic Violence N Asthma N Endometriosis N High Cholesterol N Hepatitis N Liver Disease N Heart Disease N Pre-Eclampsia N Osteoporosis N Gynecological History Statement/Question Response Abnormal Pap Y Flow Heavy On BCP's at Conception? N STIs/STDs N HPV Vaccine Y Duration of Flow (days) 3 Most Recent Mammogram Age at Menarche 15 Current Control Method Tubal Ligat ion Age at First Child 17 Frequency of Cycle (Q days) 28 Sexually Active? Y Menses Monthly Y Date of Last Pap Smear 01/16/2019 Sexual Problems? Y LMP Approximate Desired Control Method Unknown Obstetrics History GPAL:G 2 P 2 0 0 2 Type Value Multiple Births 0 Full Term 2 Induced 0 Spontaneous 0 Premature 0 Living 2 Ectopics 0 Total 2 Immunizations Vaccine Type Date Status Note Provider Nam e and Address Organization Details Recorded Time COVID-19, mRNA, LNP-S, PF, 100 mcg/0.5mL dose or 50 mcg/0.25mL dose 1 completed [place]be rapp, [place] [facility] 09/25/2020 16:46:21 COVID-19, mRNA, LNP-S, PF, 100 mcg/0.5mL dose or 50 mcg/0.25mL dose 1 completed [place]be rapp, [place] [facility] 09/25/2020 16:46:52 Influenza, split virus, quadrivalent, preservative 7 completed Not Available [facility] 03/17/2019 02:34:47 Past Encounters Encounter ID Performer Location Encounter Start Date Encounter Closed Date Diagnosis/Indication Diagnosis SNOMED-CT Code Diagnosis ICD10 Code Diagnosis IMO Codes Diagnosis Note [id number] MD Adrien Dotson (TECHNICAL REP) [address] [place] [address] [id number] 02/25/2015 15:03:21 02/25/2015 17:00:07 Gynecologic examination 46790848 Z01.419 Family cecilio nning surveillance 290291321 Z30.09 Uses IUD (intrauterine device) contraception 357673783 Z97.5 Constipation 48536899 K5 9.00 [id number] [facility] [address] [place] [address] [id number] 0 03/31/2015 14:17:50 03/31/2015 16:12:41 Irritable bowel syndrome 15212746 K58.9 Contraception care 49046 5005 Z30.40 [id number] [facility] Lemos [facility] (TECHNICAL REP) [address] [place] [address] [id number] 01/13/2017 15:45:49 01/17/2017 16:01:53 Family planning surveillance 579856158 Z30.09 Irritable bowel syndrome 17898808 K58.9 Administra tion of influenza vaccine 23746109 Z23 [id number] [facility] ([facility]) [address] [place] [address] [id number] 01/16/2019 15:43:49 01/17/2019 10:51:23 Gynecologic examination 38491971 Z01.419 Exposure t o sexually transmissible disorder 962280166 Z20.2 Family cecilio nning surveillance 844652815 Z30.09 Health Concerns Section Related Observation LastModified by Organization Detai ls LastModified Time None Recorded Concern Status LastModified by Organization Details LastModified Time None Recorded Advance Directives Directive N: Payers Insurance Date Sequence Insurance Name Policy Number Policy Hoffman Covered Member ID Hoffman Member ID Guarantor Name 01/16/2019 2 [facility] [id number] [facility] 01/28/2019 1 [facility] [id number] [facility] [id number] [facility] 01/13/2017 1 [facility] [id number] [facility] [id number] [facility] 03/31/2015 2 [place] [id number] [facility] [id number] [facility] 01/16/2019 1 [place] [id number] Kavitha Aden [id number] Kavitha Aden 01/28/2019 2 [facility] ([place] [id number] Santino Aden [id number] Kavitha Aden Notes Date Note Type Note Provider Name and Address Organization Details Recorded Time 5 text/html Annual GYNReported by PatientHistoryFor history, patient reportsno gynecologic complaintsandno change in interval history.Genitourinary symptomsFor menstrual cycle, patient reportsnormal menses. For urinary symptoms, patient reportsno hematuriaandno incontinence. For vulva, patient reportsno genital lesion. For vagina, patient reportsnormal vaginal discharge.Breast symptomsFor breast, patient reportsno breast pain,no breast lump, andno nipple discharge.ContraceptionFor current contraception, patient reportssatisfied with current contraception,intrauterine device (iud), andwants to discuss contraceptive options.Endocrine symptomsFor sexual complaints, patient reportsno sexual complaints,no pain during intercourse, andnormal libido. For menopausal symptoms, patient reportsno menopausal symptomsandnormal vaginal lubrication.Psychological symptomsFor psychological symptoms, patient reportsno depression,no anxiety, andno pmdd.Preventative measuresFor preventive measures, patient reportsencourage self breast examination,encourage regular exercise,encourage no tobacco use,encourage regular mammograms starting age 40,followed with yearly pap smears, andhistory of abnormal pap smear/cervical dysplasia. MEREDITH Rosas [facility] 03/13/2015 13:56:48 6 text/html Post-OpReported by PatientHPIFor associated symptoms, patient reportsconstipationbut reportsincision healing well,no fatigue,normal appetite,normal bowel function,no nausea,no emesis,pain improving,no pain,no fever,no bleeding,no lower extremity edema/pain, andno dysuria/urinary symptoms.ROS as noted in the HPI Kenny Goman ANNABELLA [facility] 03/31/2015 17:32:25 7 text/html Annual GYNReported by PatientGenitourinary symptomsFor menstrual cycle, patient reportsnormal menses. For urinary symptoms, patient reportsno hematuriaandno incontinence. For vulva, patient reportsno genital lesion. For vagina, patient reportsnormal vaginal discharge.Breast symptomsFor breast, patient reportsno breast pain,no breast lump, andno nipple discharge.Endocrine symptomsFor sexual complaints, patient reportsno sexual complaints,no pain during intercourse, andnormal libido. For menopausal symptoms, patient reportsno menopausal symptomsandnormal vaginal lubrication.Psychological symptomsFor psychological symptoms, patient reportsno depression,no anxiety, andno pmdd.ROS as noted in the HPI 31 year old female presents to clinic for new BC and IBS Kenny rapp [facility] 01/13/2017 17:51:50 9 text/html Annual GYNReported by PatientGenitourinary symptomsFor menstrual cycle, patient reportsnormal menses. For urinary symptoms, patient reportsno hematuriaandno incontinence. For vulva, patient reportsno genital lesion. For vagina, patient reportsnormal vaginal discharge.Breast symptomsFor breast, patient reportsno breast pain,no breast lump, andno nipple discharge.Endocrine symptomsFor sexual complaints, patient reportsno sexual complaints,no pain during intercourse, andnormal libido. For menopausal symptoms, patient reportsno menopausal symptomsandnormal vaginal lubrication.Psychological symptomsFor psychological symptoms, patient reportsno depression,no anxiety, andno pmdd.ROS as noted in the HPI 31 yo WF with hx of tubal ligation, IBS, GBCc, and generalized anxiety presents to clinic for new discussion about BC for control of her menstrual cycles. No other complaints at this time. Kenny rapp, [facility] 01/17/2019 18:08:55 OBGyn Episode Ob Episode Information Episode Created Date Number of Fetuses Patient Bloodtype Patient rh Status Prepregnancy Weight lbs Domestic Partner Domestic Partner Phone Father Name Alining Inspector Status 02/26/20 15 1 CLOSED Fetus Data First Name Last Name Admitted to NICU Weight (g) Sex Living Outcome Pediatric Complications Fetus ID Race Codes Race Delivery Type 3515.33 8 F Full Term [id number] Standard Vaginal Delivery Lio Calculation Initial Lio Date Initial Exam Date Initial Exam Provider Initial Ultrasound Date Last Menstrual Period Date Ultra Sound Weeks Gestation 0 Eighteen To Twenty Week Lio Update Ultra Sound Date Fundal Height At Umbil Quickening Date Ultra Sound Latest Weeks Gestation Final Lio Confirmed By Final Lio Confirmed Date Final Lio Date Ultra Sound Latest Days Gestation 0 0 Menstrual History Last Menstrual Date Menses Monthly On Bcp Conception Prior Menses Frequency Hcg Plus Date Menarche Onset Age Delivery Information Delivery Date Delivery Type Labor Anesthesia Weeks Gestation Incision Type Labor Labor Length Hrs Delivered By Post Complications Tubal Sterilization Discharge Date Comments 0 [facility]- idural 40 [facility] Discharge Information Feeding Method Contraceptive Method Maternal HG B and HCT Levels Ob Episode Information Episode Created Date Number of Fetuses Patient Bloodtype Patient rh Status Prepregnancy Weight lbs Domestic Partner Domestic Partner Phone Father Name Alining Inspector Status 02/26/20 15 1 CLOSED Fetus Data First Name Last Name Admitted to NICU Weight (g) Sex Living Outcome Pediatric Complications Fetus ID Race Codes Race Delivery Type 4025.62 9 M Full Term [id number] Standard Vaginal Delivery Lio Calculation Initial Lio Date Initial Exam Date Initial Exam Provider Initial Ultrasound Date Last Menstrual Period Date Ultra Sound Weeks Gestation 0 Eighteen To Twenty Week Lio Update Ultra Sound Date Fundal Height At Umbil Quickening Date Ultra Sound Latest Weeks Gestation Final Lio Confirmed By Final Lio Confirmed Date Final Lio Date Ultra Sound Latest Days Gestation 0 0 Menstrual History Last Menstrual Date Menses Monthly On Bcp Conception Prior Menses Frequency Hcg Plus Date Menarche Onset Age Delivery Information Delivery Date Delivery Type Labor Anesthesia Weeks Gestation Incision Type Labor Labor Length Hrs Delivered By Post Complications Tubal Sterilization Discharge Date Comments 3 [facility] 40 21 [place] Discharge Information Feeding Method Contraceptive Method Maternal HG B and HCT Levels
== END 2025-02-04 16:32 | disposition home or self-care (01) ==
LOC: ANHLAB 16:33
PROVIDERS: PCP Internal Medicine; Visit Provider Anesthesiology
DX: Z01.818 Encounter for other preprocedural examination (principal); N99.85 Post endometrial ablation syndrome
CPT/HCPCS: 36415; 86850; 86900; 86901

== ENCOUNTER 2025-02-07 03:38 | Day surgery (SDC) | payer OTHER, SELFPAY ==
--- NOTE | 2025-02-04 09:37 | SUR.PREOP ---
[facility] has started construction of its new state of the art ER which will open Spring 2026. With this, we anticipate parking may be a challenge for some our surgical patients and families. Parking spaces are limited but are available for all Surgical, obstetrics, and ER patients sharing this lot. If you arrive and find you are having a hard time finding a parking space, please note that we understand the challenges, please drive around the hospital and park near Hospital Entrance 1. When you enter this entrance, you can ask a volunteer to direct or take you back to the surgical waiting area to check in. We appreciate everyone?s understanding of these expected challenges while we build for your future. Report to the Outpatient Waiting Room, entrance under the green pavilion located off [address], at time _0730_ on date _02/07/2025_. Planned Procedure Time: _0930_.? Time changes happen often and if your time is changed the preop area will call you the afternoon before. - You and your visitor will be asked to self-screen and do not enter if you have any COVID symptoms. Please call surgeon if you need to reschedule. - A mask is optional within the hospital at this time. Patients may have clear liquids (water, carbonated beverages, clear teas, apple juice) until 3 hours (0630) prior to surgery with a maximum of 20 ounces. - No food from midnight until time of surgery and no smoking, or chewing tobacco (or any form of nicotine). No chewing gum, candy or mints. Take only the following medications with a SIP of water on the morning of surgery: _BUPROPION, FLUOXETINE_ DO NOT STOP ANY OF YOUR OTHER PRESCRIPTION MEDICATIONS PRIOR TO SURGERY EXCEPT THE FOLLOWING Hold all vitamins and supplements for 3 days per anesthesiologist. Medications to discontinue per physician _NA_ Date to take last dose_NA_ Please no make-up, nail malay, hairspray, perfume, deodorant, or body powder the day of surgery.? No jewelry (including any body piercings) or valuables the day of surgery, leave them at home.? Please take a shower or bath the night before, or the morning of, surgery with an antibacterial soap.? Wear comfortable, loose fitting clothing. - Jewelry must be removed prior to entering the operating room.? Rings and piercings that are not removed may be cut off. - The hospital will not accept responsibility for valuables.? - Please leave all valuables, including medications, at home the day of surgery. If you are going home after surgery, a licensed sales route driver must drive you home.? - NO public transportation without another adult if you receive anesthesia. - We recommend that an adult stay with you for 24 hours following discharge. - We also recommend that you do not drive, make important decision, drink alcoholic beverages, or take any drugs that were not prescribed by your health care provider for at least 24 hours after your discharge time. Follow any additional instructions given to you from your surgeon. Telephone instructions given to _JEANNIE_and asked if any additional questions and then verbalized understanding. Patient advised to call surgeon office or pre surgery nurse liaison [phone] if any additional questions.
[2025-02-04 09:50] VITALS: BMI 30.1
[2025-02-07] VITALS (8 sets, daily range): BP systolic 101–113; BP diastolic 47–58; PULSE 60–66; RESP 12–20; TEMP 36.4–37; O2SAT 98–100
--- OUTSIDE RECORDS SUMMARY | 2025-02-07 03:40 | XMS_ITS | Clinical Summary ---
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 [place] [address] PCP - General Internal Medicine 09/13/23
--- OUTSIDE RECORDS SUMMARY | 2025-02-07 03:40 | XMS_ITS | Clinical Summary ---
Author Organization [facility] Address [address] [place] [id number] Care Team Providers Care Director Investment Banking Name Role Phone Unavailable Primary Care Provider [...] HPV VACCINES (No Doses Required) Completed Insurance [facility] INDIVIDUAL EXCHANGE [id number] [facility]
--- OUTSIDE RECORDS SUMMARY | 2025-02-07 03:40 | XMS_ITS | Clinical Summary ---
Author Organization [facility] Address [address] [place] [address] Care Team Providers Care Head Neck Surgeon Name Role Phone Unavailable Primary Care Provider Unavailabl e Source Comments [facility],non-owned Affiliates and Associated Physician Practices is amultiple site organization consisting of ambulatory clinics and hospital sitesin [place], [place], [place] and [place]. This disclosure is being madepursuant to the Care Everywhere program and may not contain all information available regarding this patient. Last updated 17.[facility] Allergies No known active allergies Medications * [...] on file Legal Sex Female 10:29 AM POURER BULL [employer]ADLE Gender Identity Not on file Sexual Orientation Not on file Last Filed Vital Signs Vital Sign Reading Time Taken Comments Blood Pressure 96/68 04/16/2017 2:45 PM [employer]ADLE Pulse 87 04/16/2017 2:45 PM [employer]OUR[employer]ADLE Temperature 36.8 C (98.2 F) 04/16/2017 2:45 PM [employer]ADLE Respiratory Rate 16 04/16/2017 2:45 PM [employer] B[employer]ADLE Oxygen Saturation 98% 04/16/2017 2:45 PM POURER BULL LADLE Inhaled Oxygen Concentration - - Weight 74.8 kg (165 lb) 04/16/2017 2:45 PM POURER BULL LADLE Height 162.6 cm (5' 4) 04/16/2017 2:45 PM POURER BULL [employer]ADLE Body Mass Index 28.32 04/16/2017 2:45 PM POURER BULL LADLE Plan of Treatment Health Maintenance Due Date [...] age to complete this topic Insurance [facility] [place] [address] [facility]
--- OUTSIDE RECORDS SUMMARY | 2025-02-07 03:40 | XMS_ITS | Encounter Summary ---
Author Organization [facility] Address [address] [place] [address] Care Team Providers Care Fashion Director Party Plan Sales Name Role Phone Unavailable Primary Care Provider Unavailabl e Encounter Details Date Type Department Care Team (Late st Contact Info) Description 03/11/2023 Lab Requisition [facility] - DermPath Lab [address] [place] [address] Vaughn Matias MD [address] [place] [address] Social History Tobacco Use Types Packs/Day Years Used Date Smoking Tobacco: Never Smokeless Tobacco: Never Comments Unknown Sex and Gender Information Value Date Recorded Sex Assigned at Not on file Legal Sex Female 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 Gender Identity Not on file Sexual Orientation Not on file documented as of this encounter Plan of Treatment Not on file documented as of this encounter Procedures Procedure Name Priority Date/Time Associated Diagnosis Comments DERMATOPATHOLOGY Routine 03/09/2023 12:0 0 AM INDUSTRIAL MACHINE OPERATOR documented in this encounter Results * DERMATOPATHOLOGY (03/09/2023 12:00 AM INDUSTRIAL MACHINE OPERATOR) Case Report Dermatopathology Report Case: [id number] Authorizing Provider: Vaughn Matias MD Collected: 03/09/2023 12:00 AM Ordering Location: [facility] DermPath Lab Received: 03/11/2023 04:37 PM Pathologist: Arnold Alaniz MD Specimen: Skin, epigastrium 4:15 PM INDUSTRIAL MACHINE OPERATOR DERMATOPATHOLOGY LABORATORY Final Diagnosis Specimen A. SKIN, epigastrium: EPIDERMOID CYST (L72.0) 4:15 PM [facility] DERMATOPATHOLOGY LABORATORY at 1615 INDUSTRIAL MACHINE OPERATOR Clinical History R/O Epidermal Inclusion Cyst vs other Neoplasm. Check Margin 4:15 PM [facility] DERMATOPATHOLOGY LABORATORY Gross Description Specimen A: Received is one formalin filled container labeled with the patient's name and designated epigastrium. The specimen consists of a piece of skin 8x8x9 mm. The margin is inked green. The specimen is bisected lengthwise and submitted in 1 cassette. Jar 0. 4:15 PM [facility] DERMATOPATHOLOGY LABORATORY Microscopic Description Specimen A. SKIN, epigastrium: Within the dermis, there is a space lined by epithelium that resembles normal epidermis and the infundibular portion of the hair follicle. 4:15 PM [facility] DERMATOPATHOLOGY LABORATORY Disclaimer An external and internal positive and negative controls are appropriate for the histochemical, immunohistochemical and immunofluorescence stain(s) in this case (if any), except where stated explicitly. The performance characteristics of the stain(s) cited in this report were developed and its performance characteristic determined by the Dermatopathology Laboratory at [facility], directed by Dr. Mundo Alaniz. These tests need not be, and therefore are not, approved by the [place] Food and Drug Administration. The tests are used for clinical purposes. Billing Codes Specimen Charges Stain Charges 59885 1 4:15 PM [facility] DERMATOPATHOLOGY LABORATORY Embedded Images 4:15 PM [facility] DERMATOPATHOLOGY LABORATORY Pathology/Cytolog y TISSUE SPECIMEN FROM SKIN / Unknown 03/09/2023 03/11/2023 4:37 PM INDUSTRIAL MACHINE OPERATOR us Vaughn Matias MD LAB - PATHOLOGY/CYTOLOGY ORD ERABLES Final Result DERMATOPATHOLOGY LABORATORY [facility] - Department of Dermatology [address] [place] [address], [facility] [phone] documented in this encounter Visit Diagnoses Not on filedocumented in this encounter
--- OUTSIDE RECORDS SUMMARY | 2025-02-07 03:40 | XMS_ITS | Encounter Summary ---
Author Organization [facility] Address [address] [place] [address] Care Team Providers Care Creative Designer Name Role Phone Unavailable Primary Care Provider Unavailabl e Encounter Details Date Type Department Care Team (Late st Contact Info) Description 05/08/2020 Lab Requisition [facility] DermPath Lab [address] [place] [address] Vaughn Matias MD [address] [place] [address] Social History Tobacco Use Types Packs/Day Years Used Date Smoking Tobacco: Never Smokeless Tobacco: Never Comments Unknown Sex and Gender Information Value Date Recorded Sex Assigned at Not on file Legal Sex Female 10:29 AM FOOT ROENTGENOLOGIST Gender Identity Not on file Sexual Orientation Not on file documented as of this encounter Plan of Treatment Not on file documented as of this encounter Procedures Procedure Name Priority Date/Time Associated Diagnosis Comments DERMATOPATHOLOGY Routine 05/07/2020 3:33 AM FOOT ROENTGENOLOGIST documented in this encounter Results * DERMATOPATHOLOGY (05/07/2020 3:33 AM FOOT ROENTGENOLOGIST) Case Report Dermatopathology Report Case: [id number] Authorizing Provider: Vaughn Matias MD Collected: 05/07/2020 03:33 AM Ordering Location: [facility] DermPath Lab Received: 05/08/2020 01:36 PM Pathologist: Prema Barboza MD Specimens: A) - Skin, post right neck B) - Skin, left med mid cuadra 3:58 PM CDT DERMATOPATHOLOGY LABORATORY Amended Report Site B changed from left med calf to left med mid cuadra. 3:58 PM CDT DERMATOPATHOLOGY LABORATORY Addendum 1 Addendum not required. 3:58 PM T DERMATOPATHOLOGY LABORATORY Addendum electronically signed by Prema Barboza MD on 05/22/2020 at 1106 CDT Final Diagnosis Specimen A. SKIN, post right neck: INTRADERMAL MELANOCYTIC NEVUS (D22.4) Specimen B. SKIN, left med mid cuadra: DERMATOFIBROMA (D23.9) APPROXIMATES MARGIN 3:58 PM T DERMATOPATHOLOGY LABORATORY Amendment electronically signed by Prema Barboza MD on 05/22/2020 at 1558 CDT at 1320 FOOT ROENTGENOLOGIST Clinical History A: R/O dys nevus. B: R/O BCC, DF, dys nevus. Check margins. 3:[address] [facility] DERMATOPATHOLOGY LABORATORY Gross Description Specimen A: Received is one formalin filled container labeled with the patient's name and designated post right neck. The specimen consists of a shave biopsy measuring 6o5x3sl. Jar 0. Specimen B: Received is one formalin filled container labeled with the patient's name and designated left med calf. The specimen consists of a punch excision measuring [id number]. The margin is inked green. The specimen is bisected lengthwise and submitted in 1 cassette. Jar 0. 3:[address] [facility] DERMATOPATHOLOGY LABORATORY Microscopic Description Specimen A. SKIN, post right neck: There are nests of cytologically bland melanocytes within the dermis that mature with depth. Specimen B. SKIN, left med mid cuadra: There is epidermal hyperplasia. Within the dermis, there are fibrohistiocytic cells in haphazard array among coarse collagen bundles. This lesion approximates the margin of the specimen. 3:[address] [facility] DERMATOPATHOLOGY LABORATORY Disclaimer An external and internal positive and negative controls are appropriate for the histochemical, immunohistochemical and immunofluorescence stain(s) in this case (if any), except where stated explicitly. The performance characteristics of the stain(s) cited in this report were developed and its performance characteristic determined by the Dermatopathology Laboratory at [facility], directed by Dr. Mundo Alaniz. These tests need not be, and therefore are not, approved by the [place] Food and Drug Administration. The tests are used for clinical purposes. Billing Codes Specimen Charges Stain Charges 08729 16799 1 1 3:58 PM CDT DERMATOPATHOLOGY LABORATORY Embedded Images 3:58 PM CDT DERMATOPATHOLOGY LABORATORY Pathology/Cytology TISSUE SPECIMEN FROM SKIN / Unknown 05/07/2020 3:33 AM FOOT ROENTGENOLOGIST 05/08/2020 1:36 PM FOOT ROENTGENOLOGIST Miscellaneous samples (specimen) TISSUE SPECIMEN FROM SKIN / Unknown 05/07/2020 3:33 AM FOOT ROENTGENOLOGIST 05/08/2020 1:36 PM FOOT ROENTGENOLOGIST Vaughn Matias MD LAB - PATHOLOGY/CYTOLOGY ORD ERABLES Edited Result - Final DERMATOPATHOLOGY LABORATORY [facility] - Department of Dermatology [facility] Medicine [address] [place] [address], [address] [phone] documented in this encounter Visit Diagnoses Not on filedocumented in this encounter
--- OUTSIDE RECORDS SUMMARY | 2025-02-07 03:41 | XMS_ITS | Data Portability ---
Author Organization [facility] Address [address] [place] [address] Assessment No assessment recorded. Plan of Treatment Reminders Order Date Submit Date Provider Last Modified By Organization Details Last Modified Time Details Appointments None recorded . Lab pap, IG + HPV, cervical 2018 019 HENAGAR [facility], [address] Frye, Acrlos [facility], [place], [address], 9 16:09:06 urinalys is, dipstick 2018 019 [email or web address] In-Office Order, Internal Use Only DO Not Attach Compendium DO Not Attach Compendium, Do Not Delete/merge, [id number] 9 17:33:23 bacteria l vaginosi s panel, vaginal 2018 019 NATALIA [facility] (Centralized Electronic Ordering - All Locations), Patient Can Go To The Location Of Their Choice, [id number] 9 16:09:32 culture, vaginal/ rectal, streptoc occus group B 2018 019 NATALIA [facility] (Centralized Electronic Ordering - All Locations), Patient Can Go To The Location Of Their Choice, [id number] 9 16:09:33 urinalys is, dipstick 2016 017 ricarda In-Office Order, Internal Use Only DO Not Attach Compendium DO Not Attach Compendium, Do Not Delete/merge, [id number] 7 16:37:12 pregnanc y test, urine 2016 017 ricarda In-Office Order, Internal Use Only DO Not Attach Compendium DO Not Attach Compendium, Do Not Delete/merge, [id number] 7 16:37:12 pregnanc y test, urine 2015 016 ricarda In-Office Order, Internal Use Only DO Not Attach Compendium DO Not Attach Compendium, Do Not Delete/merge, [id number] 6 18:14:26 bacteria l vaginosi s + vaginiti s panel, vaginal - Please send copy of results via fax to [facility] at [phone] 2014 015 [email or web address] [facility], [address] [place] [address], [address], [place], [address], 6 12:10:48 HSV (1+2) DNA, qual, PCR, unspecif ied specimen - Please send copy of results via fax to [facility] at [phone] 2014 015 [email or web address] [facility], [address] [place] [address], [address], [place], [address], 6 12:10:48 culture, vaginal/ rectal, streptoc occus group B - Please send copy of results via fax to [facility] at 2014 015 [email or web address] [facility], [address] [place] [address], [address], [place], [address], 6 12:10:49 pap, IG + HPV, cervical 2014 015 [email or web address] [facility], [address] [place] [address], [address], [place], [address], 6 12:10:49 pregnanc y test, urine 2015 015 [email or web address] In-Office Order, Internal Use Only DO Not Attach Compendium DO Not Attach Compendium, Do Not Delete/merge, [id number] 6 07:53:40 Referral None recorded . Procedures None recorded . Surgeries None recorded . Imaging None recorded . Medication Orders multivit crooks tablet 2018 019 [facility], [address] [place], [address], 9 17:03:08 Calcium with Vitamin D 600 mg-10 mcg (400 unit) tablet 2018 019 [facility], [address] [place], [address], 9 17:03:10 Seasoniq ue 0.15 mg-30 mcg (84)/10 mcg(7) tablets, 3 month dose pack 2018 019 [facility], [address] [place], [address], 9 17:02:57 Linzess 145 mcg capsule 2016 017 [facility], [address] [place], [address], 9 16:21:[address] Fe 1-20 (5)/1-30 (7)/1mg- 35mcg(9) tablet 2016 017 [facility], [address] [place], [address], 9 16:21:20 Linzess 145 mcg capsule 2015 016 [facility], [address] [place] [address], [address], [id number], 9 16:21:11 Lybrel (28) 90 mcg-20 mcg tablet 2015 016 [place] [address] [facility], [address] [place] [address], [facility] [address], [place], [place], [id number], 7 16:05:40 Linzess 145 mcg capsule 2014 015 [facility], [address] [place], [address], 9 16:21:11 Patient TargetsNo targets recorded. Patient Instructions Encounter Date Encounter Id Patient Instructions Last Modified By Organization Details Last Modified Time 02/25/2015 [id number] constipation: care instructions Not available 03/07/2015 12:10:49 intrauterine device (IUD) insertion: care instructions Not available 03/07/2015 12:10:49 Patient to decid e if she wants Tubal Sterilization or new IUD replacement [email or web address] Not available 02/25/2015 21:27:56 03/31/2015 [id number] irritable bowel syndrome: care instructions mwasserman Not available 03/31/2015 18:14:26 01/13/2017 [id number] influenza (flu) vaccine: care instructions Not available [...] DO Not Attach Compendium, Do Not Delete/merge, [id number] 01/16/2019 16:47:42 01/17/2001/16/2019 urina lysis , dipst ick Nitrite positi ve Not Available In-Office Order Internal Use Only DO Not Attach Compendium DO Not Attach Compendium, Do Not Delete/merge, [id number] 01/16/2019 16:47:42 01/17/20 19 01/16/2019 urina lysis , dipst ick Urobilinogen 1 Not Available In-Of fice Order Internal Use Only DO Not Attach Compendium DO Not Attach Compendium, Do Not Delete/merge, [id number] 01/16/2019 16:47:42 01/17/2001/16/2019 urina lysis , dipst ick Protein Negati ve Not Available In-Office Order Internal Use Only DO Not Attach Compendium DO Not Attach Compendium, Do Not Delete/merge, [id number] 01/16/2019 16:47:42 01/17/2001/16/2019 urina lysis , dipst [...] 01/16/2019 urina lysis , dipst ick Specific [place] 1.020 Not Available In-Off ice Order Internal [...] DO Not Attach Compendium, Do Not Delete/merge, [id number] 01/16/2019 16:47:42 01/14/20 17 01/13/2017 pregn alyssa test, urine HCG negati ve Not Available In-Office Order Internal Use Only DO Not Attach Compendium DO Not Attach Compendium, Do Not Delete/merge, [id number] 01/13/2017 16:06:27 01/14/20 17 01/13/2017 urina lysis , dipst ick Leukocytes Trace Not Available In-Offi ce Order Internal Use Only DO Not Attach Compendium DO Not Attach Compendium, Do Not Delete/merge, [id number] 01/13/2017 16:05:47 01/14/20 17 01/13/2017 urina lysis [...] 01/13/2017 urina lysis , dipst ick Specific [place] 1.015 Not Available In-Off ice Order Internal Use Only DO Not Attach Compendium DO Not Attach Compendium, Do Not Delete/merge, 01/13/2017 16:05:47 01/14/20 17 01/13/2017 urina lysis , dipst ick Ketone Negati ve Not Available In-Office Order Internal Use Only DO Not Attach Compendium DO Not Attach Compendium, Do Not Delete/merge, [id number] 01/13/2017 16:05:47 01/14/20 17 01/13/2017 urina lysis , dipst ick Bilirubin Negati ve Not Available In-Office Order Internal Use Only DO Not Attach Compendium DO Not Attach Compendium, Do Not Delete/merge, [id number] 01/13/2017 16:05:47 01/14/20 17 01/13/2017 urina lysis , dipst ick Glucose Negati ve Not Available In-Office Order Internal Use Only DO Not Attach Compendium DO Not Attach Compendium, Do Not Delete/merge, [id number] 01/13/2017 16:05:47 03/31/19 16 03/31/2015 pregn alyssa test, urine HCG negati ve Not Available In-Office Order Internal Use Only DO Not Attach Compendium DO Not Attach Compendium, Do Not Delete/merge, [id number] 03/31/2015 14:40:29 03/07/19 16 03/07/2015 pregn alyssa test, urine HCG negati ve Not Available In-Office Order Internal Use Only DO Not Attach Compendium DO Not Attach Compendium, Do Not Delete/merge, [id number] 03/07/2015 12:10:49 02/27/20 15 03/02/2015 bacte rial vagin osis + vagin itis panel , vagin al trich vag by LUDWIG NEGATI VE negati ve Not Available [facility] ([facility]) [address] [place], [address], 03/03/2015 16:18:28 02/27/20 15 03/02/2015 bacte rial vagin osis + vagin itis panel , vagin al chlamydia trachomatis, LUDWIG NEGATI VE negati ve Not Available [facility] ([facility]) [address] [facility], [place], [address], 03/03/2015 16:18:28 02/27/20 15 03/02/2015 bacte rial vagin osis + vagin itis panel , vagin al neisseria gonorrhoeae, LUDWIG NEGATI VE negati ve Not Available [facility] ([facility]) [address] [place], [address], 03/03/2015 16:18:28 02/27/20 15 03/03/2015 bacte rial vagin osis + vagin itis panel , vagin al atopobium vaginae LOW - 0 score Not Available [facility] ([facility]) [address] [facility], [place], [address], 03/03/2015 16:18:28 02/27/20 15 03/03/2015 bacte rial vagin osis + vagin itis panel , vagin al bvab 2 LOW - 0 score Not Available [facility] ([facility]) [address] [place], [address], 03/03/2015 16:18:28 02/27/20 15 03/03/2015 bacte rial [...] IS NOT NECES VARUN. Not Available [facility] ([facility]) [address] [place], [address], 03/03/2015 16:18:28 02/27/20 15 03/03/2015 bacte rial vagin osis + vagin itis panel , vagin al ethan albicans, LUDWIG NEGATI VE negati ve Not Available [facility] ([facility]) [address] [place], [address], 03/03/2015 16:18:28 02/27/20 15 03/03/2015 bacte rial [...] IS NOT NECES VARUN. Not Available [facility] ([facility]) [address] [facility], [place], [address], 03/03/2015 16:18:28 02/27/20 15 02/28/2015 HSV (1+2) DNA, qual, PCR, unspe cifie d speci men hsv 1 LUDWIG NEGATI VE negati ve Not Available [facility] ([facility]) [address] [place], [address], 03/03/2015 16:18:29 02/27/20 15 02/28/2015 HSV (1+2) DNA, qual, PCR, unspe cifie d speci men hsv 2 LUDWIG NEGATI VE negati ve Not Available [facility] ([facility]) [address] [place], [address], 03/03/2015 16:18:29 02/27/20 15 02/28/2015 cultu re, [...] LINES , MMWR, 2009) Not Available [facility] ([facility]) [address] [place], [address], 03/03/2015 16:18:30 02/27/20 15 03/02/2015 pap, IG + HPV, cervi corrine diagnosis: ALLIE SUAREZ FOR INTRA EPITH ELIAL LESTREMAYNE N AND DARIN CARABALLO . Not Available [facility] ([facility]) [address] [place], [address], 03/04/2015 06:10:05 02/27/20 15 03/02/2015 pap, IG + HPV, cervi corrine specimen adequacy: ALLIE Gilliland SATIS FACTO RY FOR EVALU ATION . ENDOC ERVIC AL AND/O R SQUAM OUS METAP LASTI C CELLS (ENDO CERVI CORRINE COMPO NENT) ARE PRESE NT. Not Available [facility] ([facility]) [address] [place], [address], 03/04/2015 06:10:05 02/27/20 15 03/02/2015 pap, IG + HPV, cervi corrine clinician provided ICD10: ALLIE Gilliland Z01.4 19 Not Available [facility] ([facility]) [address] [place], [address], 03/04/2015 06:10:05 02/27/20 15 03/02/2015 pap, IG + HPV, cervi corrine performed by: ALLIE MAHONEY OND, CYTOT TALAT Gilliland (ASCP ) Not Available [facility] ([facility]) [address] [place], [address], 03/04/2015 06:10:05 02/27/20 15 03/02/2015 pap, IG + HPV, cervi corrine . . Not Available [facility] ([facility]) [address] [facility], [place], [address], 03/04/2015 06:10:05 02/27/20 15 03/02/2015 pap, IG + HPV, cervi corrine note: COMMEN T THE PAP SMEAR IS A SCREE KYRA TEST DESIG KAREEM TO AID IN THE DETEC TION OF OPAL LIGNA NT AND MALIG NANT CONDI TIONS OF THE UTERI NE CERVI X. IT IS NOT A DIAGN OSTIC PROCE DURE AND SHOUL D NOT BE USED THE SOLE MEANS OF DETEC TING CERVI CORRINE CANCE R. BOTH FALSE -POSI TIVE AND FALSE -NEGA TIVE REPOR TS DO OCCUR . Not Available [facility] ([facility]) [address] [place], [address], 03/04/2015 06:10:05 02/27/20 15 03/02/2015 pap, IG + HPV, cervi corrine test methodology: COMMEN T THIS LIQUI D BASED THINP REP(R ) PAP TEST WAS SCREE KAREEM WITH THE USE OF AN IMAGE GUIDE Diamante Barrett. Not Available [facility] ([facility]) [address] [place], [address], 03/04/2015 06:10:05 02/27/20 15 03/03/2015 pap, IG + HPV, cervi corrine HPV aptima NEGATI VE negati ve THIS TEST DETEC TS FOURT EEN HIGH- RISK HPV TYPES (16/1 8/31/ 33/35 /39/4 5/ 51/52 /56/5 8/59/ 66/68 ) WITHO UT DIFFE RENTI ATION . Not Available [facility] ([facility]) [address] [facility], [place], [address], 03/04/2015 06:10:05 11/01/18/2019 bacte rial vagin osis panel , vagin al trich vag by LUDWIG Negati ve negati ve Not Available [facility] ([facility]) [address] [place], [address], 01/19/2019 16:09:32 01/17/20 19 01/18/2019 bacte rial vagin osis panel , vagin al chlamydia trachomatis, LUDWIG Negati ve negati ve Not Available [facility] ([facility]) [address] [place], [address], 01/19/2019 16:09:32 01/17/20 19 01/18/2019 bacte rial vagin osis panel , vagin al neisseria gonorrhoeae, LUDWIG Negati ve negati ve Not Available [facility] ([facility]) [address] [place], [address], 01/19/2019 16:09:32 01/17/20 19 01/18/2019 bacte rial vagin osis panel , vagin al hsv 1 LUDWIG Negati ve negati ve Not Available [facility] ([facility]) [address] [place], [address], 01/19/2019 16:09:32 01/17/20 19 01/18/2019 bacte rial vagin osis panel , vagin al hsv 2 LUDWIG Negati ve negati ve Not Available [facility] ([facility]) [address] [place], [address], 01/19/2019 16:09:32 01/17/20 19 01/19/2019 bacte rial vagin osis panel , vagin al atopobium vaginae Low - 0 score Not Available [facility] ([facility]) [address] [place], [address], 01/19/2019 16:09:32 01/17/20 19 01/19/2019 bacte rial vagin osis panel , vagin al bvab 2 Low - 0 score Not Available [facility] ([facility]) [address] [facility], [place], [address], 01/19/2019 16:09:32 01/17/20 19 01/19/2019 bacte rial [...] e aric cteri stics deter mined by [facility]. It has not been clear ed or appro te by the Food and Drug Admin istra tion. The FDA has deter mined that such clear ance or appro hortencia is not neces varun. Not Available [facility] ([facility]) [address] [facility], [place], [address], 01/19/2019 16:09:32 01/17/20 19 01/19/2019 bacte rial vagin osis panel , vagin al ethan albicans, LUDWIG Negati ve negati ve Not Available [facility] ([facility]) [address] [place], [address], 01/19/2019 16:09:32 01/17/20 19 01/19/2019 bacte rial vagin osis panel , vagin al ethan glabrata, LUDWIG Negati ve negati ve This test was devel oped and its perfo rmanc e aric cteri stics deter mined by [facility]. It has not been clear ed or appro te by the Food and Drug Admin istra tion. The FDA has deter mined that such clear ance or appro hortencia is not neces varun. Not Available [facility] ([facility]) [address] [facility], [place], [address], 01/19/2019 16:09:32 01/17/20 19 01/18/2019 cultu re, vagin al/re ctal, strep tococ cus group B strep gp B LUDWIG Positi ve negati ve abnormal [facility] n[facility] ([facility]) and Ameri can Congr ess of Obste trici ans and Gynec ologi sts (ACOG ) guide lines for preve ntion of perin atal group B strep tococ corrine (GBS) disea se speci fy co-co llect ion of a vagin al and recta l swab speci men to maxim ize sensi tivit y of GBS detec tion. Per the [facility] and ACOG, swabb ing both the lower [...] n is noted . Not Available [facility] ([facility]) [address] [facility], [place], [address], 01/19/2019 16:09:33 01/17/20 19 01/19/2019 pap, IG + HPV, cervi corrine HPV aptima Negati ve negati ve This nucle ic acid ampli ficat ion test detec ts fourt een high- risk HPV types (16,1 8,31, 33,35 ,39,4 5,51, 52,56 ,58,5 9,66, 68) witho ut diffe renti ation . Not Available [facility] ([facility]) [address] [facility], [place], [address], 01/22/2019 16:09:06 01/17/2001/22/2019 pap, IG + HPV, cervi corrine diagnosis: Allie gilliland UNSAT ISFAC TORY FOR EVALU ATION . Not Available [facility] ([facility]) [address] [facility], [place], [address], 01/22/2019 16:09:06 01/17/2001/22/2019 pap, IG + HPV, cervi corrine recommendati on: Allie Figueroa st follo w up as clini sandip appro priat e. Not Available [facility] ([facility]) [address] [facility], [place], [address], 01/22/2019 16:09:06 01/17/2001/22/2019 pap, IG + HPV, cervi corrine specimen adequacy: Allie gilliland Speci men proce ssed and exami kareem but unsat isfac tory for evalu ation of epith elial abnor malit y becau se of insuf ficie nt cellu larit y. Not Available [facility] ([facility]) [address] [facility], [place], [address], 01/22/2019 16:09:06 01/17/20 19 01/22/2019 pap, IG + HPV, cervi corrine clinician provided ICD10: Allie gilliland Z20.2 Z01.4 19 Not Available [facility] ([facility]) [address] [facility], [place], [address], 01/22/2019 16:09:06 01/17/20 19 01/22/2019 pap, IG + HPV, cervi corrine performed by: Saeed Matos (ASCP ) Not Available [facility] ([facility]) [address] [place], [address], 01/22/2019 16:09:06 01/17/20 19 01/22/2019 pap, IG + HPV, cervi corrine QC reviewed by: Allie holland, Joana visor y Cytot talat gilliland (ASCP ) Not Available [facility] ([facility]) [address] [place], [address], 01/22/2019 16:09:06 01/17/20 19 01/22/2019 pap, IG + HPV, cervi corrine . . Not Available [facility] ([facility]) [address] [facility], [place], [address], 01/22/2019 16:09:06 01/17/20 19 01/22/2019 pap, IG [...] ts do occur . Not Available [facility] ([facility]) [address] [facility], [place], [address], 01/22/2019 16:09:06 01/17/20 19 01/22/2019 pap, IG + HPV, cervi corrine test methodology: Allie gilliland This liqui d based ThinP rep(R ) pap test was scree kareem with the use of an image guide d syste m. Not Available [facility] ([facility]) [address] [place], [address], 01/22/2019 16:09:06 Result Notes None recorded. 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 Procedures Surgical History Date Name Laterality Status Provider Name and Address Organization Details Recorded Time 9 Date of Last Pap Smear completed Consuelo Serrano MA [facility] 01/16/2019 16:06:37 6 Tubal Ligation completed Consuelo Serrano MA [facility] 01/13/2017 16:07:36 5 Carpal tunnel surgery completed Consuelo Serrano MA [facility] 01/16/2019 16:24:11 Imaging Results None recorded. [...] Updated DateTime 03/31/2015 162.56 cm 26.4 kg/m2 22652.224 98 g 124/62 mm[Hg] Neha Tilley MA [facility] 03/31/2015 14:42:25 Date Recorded Body height Body mass index (BMI) Body weight Systolic And Diastolic Provider Name and Address Organization Details Last Updated DateTime 01/13/2017 162.56 cm 28 kg/m2 54303.56 g 114/72 mm[Hg] Consuelo Serrano MA [facility] 01/13/2017 16:13:14 Date Recorded Body height Body mass index (BMI) Body weight Systolic And Diastolic Provider Name and Address Organization Details Last Updated DateTime 01/16/2019 162.56 cm 29.2 kg/m2 76782.7 g 104/72 mm[Hg] Consuelo Serrano MA [facility] 01/16/2019 16:28:27 Date Recorded Body height Body mass index (BMI) Body weight Provider Name and Address Organization Details Last Updated DateTime 02/25/2015 162.56 cm 26.1 kg/m2 20813.75666 g Neha Tilley MA [facility] 02/25/2015 15:54:40 Date Recorded Systolic And Diastolic Provider Name and Address Organization Details Last Updated DateTime 02/25/2015 100/60 mm[Hg] Lizz Jung MA [facility] 02/26/2015 19:36:51 Social History Question Answer Notes LastModified by Organizat ion Details LastModified Time Tobacco Smoking Status Never Smoker Neha Tilley MA [facility] 02/25/2015 16:01:29 Do You Have An Advance [...] Clots N GI Problems N Acne N Eating Disorder N Breast Problem N Anemia N Anesthesia Complications N Headaches/Migraines N Anxiety Disorder N Ovarian Cancer N Diabetes N Muscle, Joint, or Bone Problems N Blood Transfusions N Seizures/Epilepsy N Infertility N Polyps N Acid Reflux (GERD) N Cancer N [...] 50 mcg/0.25mL dose 1 completed Phoebe rapp, [place] - [facility] 09/25/2020 16:46:21 COVID-19, mRNA, LNP-S, PF, 100 mcg/0.5mL dose or 50 mcg/0.25mL dose 1 completed Phoebe rapp, [place] - [facility] 09/25/2020 16:46:52 Influenza, split virus, quadrivalent, preservative 7 completed Not Available [facility] 03/17/2019 02:34:47 Past Encounters Encounter ID Performer Location Encounter Start Date Encounter Closed Date Diagnosis/Indication Diagnosis SNOMED-CT Code Diagnosis ICD10 Code Diagnosis IMO Codes Diagnosis Note [id number] MD Adrien Dotson (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) [address] [place] [phone] 02/25/2015 15:03:21 02/25/2015 17:00:07 Gynecologic examination 70263183 Z01.419 Family cecilio nning surveillance 167172463 Z30.09 Uses IUD (intrauterine device) contraception 598594409 Z97.5 Constipation 16068337 K5 9.00 [id number] 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 [address] [place] [phone] 03/31/2015 14:17:50 03/31/2015 16:12:41 Irritable bowel syndrome 94867066 K58.9 Contraception care 88308 5005 Z30.40 [id number] Kenny Lemos MD [facility] ([employer]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) [address] [place] [address] [phone] 01/13/2017 15:45:49 01/17/2017 16:01:53 Family planning surveillance 290090275 Z30.09 Irritable bowel syndrome 44652672 K58.9 Administra tion of influenza vaccine 61091899 Z23 [id number] [facility] (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) [address] [place] [address] [phone] 01/16/2019 15:43:49 01/17/2019 10:51:23 Gynecologic examination 44548219 Z01.419 Exposure t o sexually transmissible disorder 913024500 Z20.2 Family cecilio nning surveillance 100711275 Z30.09 Health Concerns Section Related Observation LastModified by Organization Detai ls LastModified Time None Recorded Concern Status LastModified by Organization Details LastModified Time None Recorded Advance Directives Directive N: Payers Insurance Date Sequence Insurance Name Policy Number Policy Hoffman Covered Member ID Hoffman Member ID Guarantor Name 01/16/2019 2 [facility] [id number] [facility] 01/28/2019 1 [facility] [id number] [facility] [id number] [facility] 01/13/2017 1 [facility] [id number] [facility] [id number] [facility] 03/31/2015 2 [place] [id number] [facility] [id number] [facility] 01/16/2019 1 [place] [id number] Kavitha Aden [id number] Kavitha Aden 01/28/2019 2 [facility] [place] [id number] Santino Aden [id number] 001 Kavitha Aden Notes Date Note Type [...] of abnormal pap smear/cervical dysplasia. MEREDITH Rosas [facility] 03/13/2015 13:56:48 6 text/html Post-OpReported by [...] for new BC and IBS Kenny rapp [facility] 01/13/2017 17:51:50 9 text/html Annual GYNReported [...] other complaints at this time. Kenny rapp, [facility] 01/17/2019 18:08:55 OBGyn Episode Ob Episode Information Episode Created Date Number of Fetuses Patient Bloodtype Patient rh Status Prepregnancy Weight lbs Domestic Partner Domestic Partner Phone Father Name Glost Tile Sorter Status 02/26/20 15 1 CLOSED Fetus Data First Name Last Name Admitted to NICU Weight (g) Sex Living Outcome Pediatric Complications Fetus ID Race Codes Race Delivery Type 3515.33 8 F Full Term 59121 Standard Vaginal Delivery Lio Calculation Initial Lio [...] Complications Tubal Sterilization Discharge Date Comments 0 [facility] 40 [facility] Discharge Information Feeding Method Contraceptive Method Maternal HG B and HCT Levels Ob Episode Information Episode Created Date Number of Fetuses Patient Bloodtype Patient rh Status Prepregnancy Weight lbs Domestic Partner Domestic Partner Phone Father Name Glost Tile Sorter Status 02/26/20 15 1 CLOSED Fetus Data First Name Last Name Admitted to NICU Weight (g) Sex Living Outcome Pediatric Complications Fetus ID Race Codes Race Delivery Type 4025.62 9 M Full Term 30774 Standard Vaginal Delivery Lio Calculation Initial Lio [...]
--- OUTSIDE RECORDS SUMMARY | 2025-02-07 03:41 | XMS_ITS | Data Portability ---
Author Organization [facility] Comprimato, Main Office Address [address] [place] [address] Care Team Providers Care Stretch Box Tender Name Role Phone CHITRA SARGENT Primary Care Provider CHITRA SARGENT Referring Provider Assessment No assessment recorded. Plan of Treatment Reminders Order Date Submit Date Provider Last Modified By Organization Details Last Modified Time Details Appointments Any 15 2025 03:15P M Chitra Sargent MD Not available Not available Not available Lab CBC w/ auto diff 2024 025 [email or web address] [employer] [facility], [address], [place], [address], 06/28/2024 18:01:59 CMP, serum or plasma 2024 025 [email or web address] [employer] [facility], [address], [place], [address], 05/25/2024 12:28:39 CBC w/ auto diff 2024 025 [email or web address] [employer] [facility], [address], [place], [address], 05/25/2024 12:28:39 Referral None recorded. Procedures None recorded. Surgeries None recorded. Imaging None recorded. Medication Orders ondansetr on 4 mg disintegr ating tablet 2024 025 [facility]/Pharmacy #[id number], [address], [place], [address], 07/05/2024 16:43:37 Viberzi 75 mg tablet 2024 025 [email or web address] [facility]/Pharmacy #[id number], [address], [place], [address], 03/09/2024 10:42:39 cefdinir 300 mg capsule 2023 024 [email or web address]/Pharmacy #[id number], [address], [place], [address], 07/05/2024 16:17:17 Medrol (Ovidio) 4 mg tablets in a dose pack 2023 024 [facility]/Pharmacy #[id number], [address], [place], [address], 07/05/2024 16:17:28 Patient TargetsNo targets recorded. Patient InstructionsNo instructions recorded. Reason for Referral None Reported. Results Created Date Observation Date Name Description Value Unit Range Abnormal Flag Note LastModifiedBy Organization Detail LastModifiedTime 11/14/19 24 11/14/2023 CT, maxil lofac ial, w/o contr ast [facility] [address] [id number] Patien t Name: KAVITHA ADEN Access ion #: [id number] Sex: F : 1985 5 Dictat ed By: Krystina Jauregui Attend ing Physic tamara: DEBRA DE PAZ Orderi Physic tamara: DEBRA DE PAZ Exam Date: 2023 16:15 PM Exam Name: CT MAXILL OFACIA L WO Admitt ing Diagno sis(es ): HISTOR Y: chroni c sinusi tis TECHNI QUE: Nonenh anced axial images throug h the facial bones with esparza l and sagitt al MPR. Radiat ion Dose Inform ation: CT Dose: CTDI volume is 20 mGy. Dose-l ength produc t is 511 mGy*cm COMPAR TANIKA: None FINDIN GS: Mandib le: Unrema rkable Maxill a: Unrema rkable Pteryg oid plates : Unrema rkable Zygoma tic proces ses: Unrema rkable . Zygoma tic arches : Unrema rkable Orbits : Unrema rkable Sinuse s: Unrema rkable . Bilate ral ostiom eatal units are patent . No mucosa l thicke kyra. Facial swelli ng: None IMPRES CANDIDO: No acute facial fractu res. No eviden ce of parana jhonatan sinus diseas e. Page 1 [facility] [address] [place] [address] Patien t Name: KAVITHA ADEN Access ion #: [id number] Sex: F : 1985 5 Dictat ed By: Krystina Jauregui Attend ing Physic tamara: MITZI RICHARDSON Orderi ng Physic tamara: DEBRA DE PAZ Exam Date: 2023 16:15 PM Exam Name: CT MAXILL OFACIA L WO Admitt ing Diagno sis(es ): Radiat ion optimi zation : All CT scans at this facili ty use at least one of these dose optimi zation techni ques: automa debora exposu re contro l mA and/or kV adjust ment per patien t size (inclu marco antonio target ed exams where dose is matche d to clinic al indica tion) or iterat cristóbal recons tructi on. Electr onical ly Signed by: Krystina Jauregui at 2023 21:23: 30 PM Page [address] (Imaging) [address] [place], [address], 11/16/2023 17:29:20 11/15/19 24 11/14/2023 CT, sinus es, w/o contr ast No observ ation record ed. [email or web address] [facility] [address] [place], [address], 11/16/2023 17:29:20 11/21/19 24 11/21/2023 CT, maxil lofac ial, w/o contr ast No observ ation record ed. [email or web address] Not Available 10/30 17:50:37 02/17/20 24 02/15/2024 MAMMO , jessica rae, digit al, bilat eral No observ ation record ed. [email or web address] Not Available 2024 08:58:01 Result Notes Documentation Provider Name and Address Organization Details Recorded Time Ct, Maxillofacial, W/o Contrast : [address] [address] Patient Name: KAVITHA ADEN Sex: F : 1985 Dictated By: Krystina Jauregui Attending Physician: DEBRA QURESHI Ordering Physician: DEBRA QURESHI Exam Date: 11/14/2023 16:15 PM Exam Name: CT MAXILLOFACIAL WO Admitting Diagnosis(es): HISTORY: chronic sinusitis TECHNIQUE: Nonenhanced axial images through the facial bones with coronal and sagittal MPR. Radiation Dose Information: CT Dose: CTDI volume is 20 mGy. Dose-length product is 511 mGy*cm COMPARISON: None FINDINGS: Mandible: Unremarkable Maxilla: Unremarkable Pterygoid plates: Unremarkable Zygomatic processes: Unremarkable. Zygomatic arches: Unremarkable Orbits: Unremarkable Sinuses: Unremarkable. Bilateral ostiomeatal units are patent. No mucosal thickening. Facial swelling: None IMPRESSION: No acute facial fractures. No evidence of paranasal sinus disease. Page [address] [address] Patient Name: KAVITHA ADEN Sex: F : 1985 Dictated By: Krystina Jauregui Attending Physician: SHARON RICHARDSON Ordering Physician: DEBRA QURESHI Exam Date: 11/14/2023 16:15 PM Exam Name: CT MAXILLOFACIAL WO Admitting Diagnosis(es): Radiation optimization: All CT scans at this facility use at least one of these dose optimization techniques: automated exposure control mA and/or kV adjustment per patient size (includes targeted exams where dose is matched to clinical indication) or iterative reconstruction. Page [address] [facility], [place] [facility] 11/16/2023 17:29:20 Problems Name Problem SNOMED Code Status Onset Date Resolution Date Notes Provider Name and Address Organization Details Recorded Time Injury of ankle 635838937 Completed Not Available [facility] 3 01:09:13 Pneumonia 103208353 Completed Not Available [facility] 3 01:09:13 Ankle pain 628909570 Completed Not Available [facility] 3 01:09:14 Numbness of hand 516716380 Completed Not Available [facility] 3 01:09:14 Knee pain Completed Not Available [facility] 3 01:09:14 Vertigo 980455801 Active Not Available [facility] 3 12:48:01 Anxiety 37575676 Active Not Available [facility] 3 12:48:01 Carpal tunnel syndrome 98710495 Active Not Available [facility] 3 12:48:01 Gastroeso phageal reflux disease 660042430 Active 2020 Not Available [facility] 3 12:48:01 Hyperlipi demia 36355240 Active 2020 Not Available [facility] 3 12:48:01 Weight gain 5394154 Active 2020 Not Available [facility] 3 12:48:01 Pain in right foot 83736723504 9107 Completed 202008/12/2021 Not Available [facility] 3 01:09:14 Tendiniti s of foot 259077526 Completed 202008/12/2021 Not Available [facility] 3 01:09:15 Daytime somnolenc e 85347434627 0 Active 2021 Not Available [facility] 3 12:48:01 Pain in right foot 37649960835 9107 Active 2021 Not Available [facility] 3 12:48:01 Obesity 726107819 Active 2021 Not Available [facility] 3 12:48:01 Fatigue 77761855 Active 2021 Not Available [employer] 3 12:48:01 Sleep pattern disturban ce 45810408 Active 2021 Not Available [facility] 3 12:48:01 Sleep apnea 01452833 Active 2021 Not Available [facility] 3 12:48:01 Allergic urticaria 31866389 Active 2021 Not Available [employer] 3 12:48:01 Acid reflux 491993036 Active 2021 Not Available [facility] 3 12:48:01 Pain in throat 796720921 Active 2022 Not Available [facility] 3 12:48:01 Acute sinusitis 99189036 Active 2022 Not Available [facility] 3 12:48:01 Malignant melanoma of skin 73510450 Active 2022 Not Available [facility] 3 12:48:01 Malignant neoplasm of skin 528372016 Active 2022 Not Available [facility] 3 12:48:01 Mixed anxiety and depressiv e disorder 353990248 Active 2022 Not Available [facility] 3 12:48:01 Vasovagal symptom 497771787 Active 2022 Not Available [facility] 3 12:48:01 Impacted cerumen of bilateral ears 76225816728 36402 Active 2022 Not Available [facility] 3 12:48:01 Skin lesion 89256386 Active 2022 Chitra Sargent MD [address], [place], [address] , [facility] 3 16:49:25 Chronic sinusitis 77597269 Active 2023 Evelin Mcarthur RN null, [facility] 4 15:41:44 Irritable bowel syndrome 96911784 Active 2024 Chitra Sargent MD [address], [address], [place], [address] , [facility] [employer] [facility] 5 17:04:38 Deviated nasal septum 510674969 Active 2024 Yanira Marshall null, [facility] 5 14:37:24 Allergic rhinitis 07975570 Active 2024 Yanira Srinivasanncer null, [facility] [employer] [facility] 5 12:42:01 Episodic migraine 58702549665 4106 Active 2024 Chitra Sargent MD [address] [address], [address], [place], [address] , [facility] [employer] [facility] 5 16:37:11 Migraine without aura, not refractor y 344925811 Active 2024 FRENCH Genao [address] [employer], [place], [address] , [facility] [employer] [facility] 5 11:41:56 Notes:Medical History: Anxie ty Vertigo Obesity Hyperlipidemia PAULINO CTS Problem Notes None recorded. Procedures Surgical History Date Name Laterality Status Provider Name and Address Organization Details Recorded Time Tubal Ligation completed Not Available [facility] 04/28/2022 00:55:45 Imaging Results None recorded. Procedure Notes None recorded. Medical Equipment None Reported. Allergies Allergen ID Allergen Name Allergen Category Reaction Reaction Severity Criticality Documentation Date Start Date Code Code System Note Provider Name and Address Organization Details Recorded Time 29480 venlafaxi ne medicatio n Not available Not available Not available 09/13/2022 19037 RxNorm decre ased Libid o Chitra Sargent MD [address] [address], [facility], [place], [address], [facility] [employer] [facility] 3 15:26:01 Medications Name Sig Start Date Stop Date Status Note LastModified by Organization Details LastModified Time fluoxetine 40 mg capsule Take 1 capsule every day by oral route. 05/20 completed Not Available Not Available Not Available amoxicilli n 500 mg capsule TAKE 1 CAPSULE BY MOUTH THREE TIMES A DAY FOR 7 DAYS 06/12 completed Not Available Not Available Not Available robin ne-DM 6.25 mg-15 mg/5 mL oral syrup 09/24 completed Not Available Not Available Not Available venlafaxin e ER 75 mg capsule,ex tended release 24 hr TAKE 1 CAPSULE BY MOUTH EVERY DAY 09/13 completed Not Available Not Available Not Available trazodone 50 mg tablet active Not Available Not Available Not Available azithromyc in 250 mg tablet TAKE 2 TABLETS (500 MG) BY ORAL ROUTE ONCE DAILY FOR 1 DAY THEN 1 TABLET (250 MG) BY ORAL ROUTE ONCE DAILY FOR 4 DAYS active Not Available Not Available No t Available ibuprofen 800 mg tablet TAKE 1 TABLET BY MOUTH THREE TIMES DAILY 11/02 completed Not Available Not Available Not Available benzonatat e 200 mg capsule TK 1 C PO TID PRF COUGH active Not Available Not Available No t Available levonorges trel-ethin yl estradiol 0.1 mg-20 mcg tablet 01/28 completed Not Available Not Available Not Available meloxicam 15 mg tablet Take 1 tablet every day by oral route for 30 days. active Not Available Not Available No t Available prednisone 20 mg tablet TK 1 T PO D IN THE MORNING WF OR MILK active Not Available Not Available No t Available fluorourac il 5 % topical cream 09/13 completed Not Available Not Available Not Available venlafaxin e ER 150 mg capsule,ex tended release 24 hr Take 1 capsule every day by oral route for 30 days. active Not Available Not Available No t Available penicillin V potassium 500 mg tablet 08/14 completed Not Available Not Available Not Available tramadol 50 mg tablet TAKE 1-2 TABLETS BY MOUTH EVERY 4-6 HOURS NEEDED 11/02 completed Not Available Not Available Not Available amoxicilli n 500 mg tablet TAKE 1 ORAL TABLET 2 TIMES A DAY. REPLACE TOOTHBRU SH AFTER 4 DOSES. 07/05 completed Not Available Not Available Not Available oxycodone- acetaminop hen 5 mg-325 mg tablet active Not Available Not Available Not Available estradiol 1 mg tablet active Not Available Not Available Not Available meclizine 25 mg tablet Take 1 tablet twice a day by oral route as needed. 2022 active as needed Not Available Not Available Not Available pantoprazo le 40 mg tablet,del ayed release 09/05/ 2024 active as needed Not Available Not Available Not Available nortriptyl ine 10 mg capsule TAKE 1 CAPSULE BY MOUTH EVERY DAY 11/02 completed Not Available Not Available Not Available fluoxetine 20 mg tablet Take 1 tablet every day by oral route for 90 days. 04/30 completed Not Available Not Available Not Available dexamethas one 4 mg tablet TAKE 1 TABLET BY MOUTH EVERY 12 HOURS 11/02 completed Not Available Not Available Not Available ibuprofen 400 mg tablet 09/24 completed Not Available Not Available Not Available fluoxetine 10 mg capsule active Not Available Not Available Not Available gabapentin 300 mg capsule 09/24 completed Not Available Not Available Not Available omeprazole 20 mg capsule,de layed release Take 1 capsule every day by oral route as needed. active Not Available Not Available No t Available Levaquin 500 mg tablet Take 1 tablet every 24 hours by oral route for 7 days. 10/02 completed Not Available Not Available Not Available ibuprofen 600 mg tablet 09/24 completed Not Available Not Available Not Available methylpred nisolone 4 mg tablets in a dose pack TAKE 6 TABLETS ON DAY 1 DIRECTED ON PACKAGE AND DECREASE BY 1 TAB EACH DAY FOR A TOTAL OF 6 DAYS 07/05 completed Not Available Not Available Not Available ondansetro n 4 mg disintegra ting tablet LET 1 TABLET DISSOLVE ON TOP OF THE TONGUE TWICE A DAY NEEDED active Not Available Not Available No t Available cefdinir 300 mg capsule TAKE 1 CAPSULE BY MOUTH EVERY 12 HOURS FOR 10 DAYS 07/05 completed Not Available Not Available Not Available fluoxetine 20 mg capsule TAKE 1 CAPSULE BY MOUTH EVERY DAY active Not Available Not Available No t Available fluticason e propionate 50 mcg/actuat ion nasal spray,susp ension Inhale 1 spray every day by intranas al route. active Not Available Not Available No t Available sertraline 50 mg tablet 09/24 completed Not Available Not Available Not Available naproxen 500 mg tablet 08/14 completed Not Available Not Available Not Available amoxicilli n 875 mg-potassi um clavulanat e 125 mg tablet TAKE 1 TABLET BY MOUTH TWICE A DAY FOR 7 DAYS 11/02 completed Not Available Not Available Not Available azithromyc in 500 mg tablet active Not Available Not Available Not Available bupropion HCl XL 300 mg 24 hr tablet, extended release TAKE 1 TABLET BY MOUTH EVERY DAY 2024 active MELINDA 11/01/24 NOV 03/04/25 ok to rf Not Available Not Available Not Available bupropion HCl XL 150 mg 24 hr tablet, extended release Take 1 tablet every day by oral route. 01/18 completed Not Available Not Available Not Available nitrofuran toin monohydrat e/macrocry stals 100 mg capsule 04/28 completed Not Available Not Available Not Available SERA (28) 3 mg-0.02 mg tablet TAKE 1 TABLET BY MOUTH EVERY DAY CONTINUO USLY-SKI P PLACEBO PILLS 09/13 completed Not Available Not Available Not Available L norgest/E estradiol- E estrad 0.15 mg-30 mcg (84)/10 mcg(7) tabs,3mos TAKE ONE TABLET DAILY 01/05 completed Not Available Not Available Not Available Tri-Legest Fe 1-20 (5)/1-30(7 )/1mg-35mc g(9) tablet 12/30 completed Not Available Not Available Not Available Nucynta 50 mg tablet 09/23 completed Not Available Not Available Not Available Natazia 3 mg/2 mg-2 mg/2 mg-3 mg/1 mg tablet 08/14 completed Not Available Not Available Not Available Herminia (28) 90 mcg-20 mcg tablet active Not Available Not Available Not Available Linzess 145 mcg capsule 06/10 completed Not Available Not Available Not Available Viberzi 75 mg tablet TAKE 1 TABLET BY MOUTH EVERY DAY active Not Available Not Available No t Available Afluria Quad (PF) 60 mcg (15 mcg x 4)/0.5 mL IM syringe ADM 0.5ML IM UTD 08/14 completed Not Available Not Available Not Available Afluria Qd 2018- (36 mos up)(PF)60 mcg (15 mcg x4)/0.5 mL IM syringe ADM 0.5ML IM UTD 08/14 completed Not Available Not Available Not Available Nurtec ODT 75 mg disintegra ting tablet TAKE 1 TABLET BY ORAL ROUTE NEEDED, FOR ACUTE TREATMEN T OF MIGRAINE WITH OR WITHOUT AURA.. active Not Available Not Available No t Available Flucelvax Quad (PF) 60 mcg (15 mcg x 4)/0.5 mL IM syringe ADM 0.5ML IM UTD 12/16 completed Not Available Not Available Not Available Flowflex COVID-19 Antigen Home Test kit 01/05 completed Not Available Not Available Not Available Vitals Date Recorded Body height Body mass index (BMI) Body weight Body temperature Heart rate Oxygen saturation Systolic And Diastolic Provider Name and Address Organization Details Last Updated DateTime 5 161.29 cm 30.9 kg/m2 07828.8 5 g 97.6 [degF] 72 /min 99 % 120/70 mm[Hg] Julianne johnson [facility] 5 16:45:40 Date Recorded Body height Body mass index (BMI) Body weight Body temperature Heart rate Oxygen saturation Systolic And Diastolic Provider Name and Address Organization Details Last Updated DateTime 5 161.29 cm 31 kg/m2 32464.4 4 g 97.5 [degF] 76 /min 99 % 110/64 mm[Hg] Julianne johnson [facility] 5 16:16:04 Date Recorded Body height Body mass index (BMI) Body weight Body temperature Provider Name and Address Organization Details Last Updated DateTime 10/27/2023 161.29 cm 29.9 kg/m2 97884.01 g 98.8 [degF] CHELSEA Freitas [employer] [facility] [employer] 10/27/2023 15:26:40 Date Recorded Body height Body mass index (BMI) Body weight Body temperature Heart rate Oxygen saturation Systolic And Diastolic Provider Name and Address Organization Details Last Updated DateTime 5 161.29 cm 30.9 kg/m2 38548.8 5 g 97.8 [degF] 78 /min 98 % 128/76 mm[Hg] Izabel stapleton [employer] [facility] [employer] 5 16:41:12 Date Recorded Body height Body mass index (BMI) Body weight Body temperature Heart rate Oxygen saturation Systolic And Diastolic Provider Name and Address Organization Details Last Updated DateTime 4 161.29 cm 29.8 kg/m2 37003.3 g 98.1 [degF] 80 /min 99 % 114/62 mm[Hg] Cecilia Callaway CMA [employer] [facility] [employer] 4 16:37:00 Social History Question Answer Notes LastModified by OrganizVastrm ion Details LastModified Time Tobacco Smoking Status Never Smoker Not Available [facility] 04/28/2022 00:55:11 Do You Have An Advance Directive? No [id number] Information not available 04/28/2022 If You Are , What Was Your Level Of Alcohol Consumption Prior To ? None [id number] Information not available 04/28/2022 What Is Your Level Of Caffeine Consumption? Heavy MIGRATION.[id number] 026 Information not available 04/28/2022 How Much Tobacco Do You Chew? None MIGRATION.[id number] 026 Information not available 04/28/2022 In The 14 Days Before Symptom Onset, Have You Had Close Contact With A Laboratory-confirm ed COVID-19 While That Case Was Ill? No [id number] [id number] Information not available 04/28/2022 In The 14 Days Before Symptom Onset, Have You Had Close Contact With A Person Who Is Under Investigation For COVID-19 While That Person Was Ill? No MIGRATION.[id number] 026 Information not available 04/28/2022 What Type Of Diet Are You Following? REGULAR MIGRATION.[id number] 026 Information not available 04/28/2022 Which Illicit Or Recreational Drugs Have You Used? None MIGRATION.[id number] 026 Information not available 04/28/2022 What Was The Date Of Your Most Recent Tobacco Screening? 01/08/2021 MIGRATION.[id number] 026 Information not available 04/28/2022 Have You Ever Been Counseled For Unhealthy Alcohol Use? No MIGRATION.[id number] 026 Information not available 04/28/2022 Do You Use Sunscreen Routinely? Yes [id number] 026 Information not available 04/28/2022 Has Tobacco Cessation Counseling Been Provided? No MIGRATION.[id number] 026 Information not available 04/28/2022 Sex: Female Functional Status Question Answer Note LastModified by Organizat ion Details LastModified Time Do you use any illicit or recreational drugs? No MIGRATION.[id number] 026 Information not available 04/28/2022 Do you or have you ever used any other forms of tobacco or nicotine? No MIGRATION.[id number] 026 Information not available 04/28/2022 What is your level of alcohol consumption? 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 Occasional MIGRATION.[id number] 026 Information not available 04/28/2022 Mental Status None recorded. Family History Relationship Description Onset Age of this Age Resolved Age Notes LastModified by Organization Details LastModified Time Maternal Grandfather Diabetes mellitus [id number].304 [id number] Not available 04/28/2022 00:55:52 Maternal Grandmother Hypertensive disorder MIGRATION.068 [id number] Not available 04/28/2022 00:55:52 Maternal Grandmother Arthritis MIGRATION.331 [id number] Not available 04/28/2022 00:55:52 Maternal Grandmother Pulmonary embolism MIGRATION.362 [id number] Not available 04/28/2022 00:55:53 Paternal Grandfather Malignant neoplasm of lung MIGRATION.797 [id number] Not available 04/28/2022 00:55:53 Paternal Grandmother Malignant neoplasm of bone MIGRATION.857 [id number] Not available 04/28/2022 00:55:53 Mother Arthritis MIGRATION.616 [id number] Not available 04/28/2022 00:55:53 Mother Hypertensive disorder MIGRATION.275 [id number] Not available 04/28/2022 00:55:53 Mother Sinusitis ftrotter Not availabl e 10/27/2023 15:31:57 Brother Sinusitis ftrotter Not availab le 10/27/2023 15:31:57 Sister Sinusitis ftrotter Not availabl e 10/27/2023 15:31:57 Medical History Condition Response HEADACHES/MIGRAINES Y DIZZINESS Y Gynecological History Statement/Question Response Date of Last Mammogram 01/09/2013 Obstetrics History GPAL:G 0 P 0 0 0 0 Immunizations Vaccine Type Date Status Note Provider Nam e and Address Organization Details Recorded Time influenza, intradermal, quadrivalent, preservative free 6 completed Not Available [facility] 11/01/2024 16:09:47 Influenza, split virus, quadrivalent, preservative 7 completed Not Available [facility] 11/01/2024 16:09:47 Influenza, split virus, quadrivalent, PF 8 completed Not Available [facility] 11/01/2024 16:09:47 Influenza, split virus, quadrivalent, preservative 9 completed Not Available [facility] [facility] 11/01/2024 16:09:47 Influenza, split virus, trivalent, preservative 1 completed Not Available [facility] 11/01/2024 16:09:47 Influenza, MDCK, quadrivalent, PF 3 completed Not Available [facility] 11/01/2024 16:09:47 Influenza, MDCK, trivalent, PF 4 completed Not Available [facility] 11/01/2024 16:09:47 influenza, unspecified formulation 5 completed MEREDITH Graham, [facility] [employer] 01/28/2025 17:39:51 COVID-19, mRNA, LNP-S, PF, 100 mcg/0.5mL dose or 50 mcg/0.25mL dose 1 completed Not Available [facility] 04/28/2022 01:25:19 COVID-19, mRNA, LNP-S, PF, 100 mcg/0.5mL dose or 50 mcg/0.25mL dose 1 completed Not Available [facility] 04/28/2022 01:25:19 Influenza, split virus, quadrivalent, preservative 0 completed Not Available [facility] 04/28/2022 01:25:19 Influenza, split virus, quadrivalent, PF 2 completed Not Available [facility] 04/28/2022 01:25:19 Influenza, high-dose, trivalent, PF 5 completed Not Available [facility] 04/28/2022 01:25:19 Past Encounters Encounter ID Performer Location Encounter Start Date Encounter Closed Date Diagnosis/Indication Diagnosis SNOMED-CT Code Diagnosis ICD10 Code Diagnosis IMO Codes Diagnosis Note [id number] Chitra Sargent MD [facility] Internal [address] [place] [address] 04/28/2020 00:00:00 04/28/2020 11:10:29 [id number] Chitra Sargent MD [facility] Internal [address] [place] [address] 06/16/2020 00:00:00 06/16/2020 17:16:20 [id number] MD ALEX YoderS[facility] [address] [address] 12/24/2020 00:00:00 12/24/2020 17:17:32 [id number] George Vale DPM [facility] [place] [address] [place] [address] 01/08/2021 00:00:00 01/08/2021 09:28:28 [id number] MD ALEX [facility] [address] [address] 01/20/2021 00:00:00 01/20/2021 12:11:34 [id number] ENRIQUETA LopezS[facility] [place] [address] [place] [address] 02/05/2021 00:00:00 02/05/2021 17:02:22 [id number] George Vale DPM S_[facility] [place] [address] [place] [address] 03/26/2021 00:00:00 03/26/2021 17:14:11 [id number] George Vale DPM _ATHENA_M IGRATION_ DEFAULT_1 _1 , 04/27/2021 00:00:00 04/27/2021 17:06:47 [id number] MD ALEX [facility] [address] [address] 08/12/2021 00:00:00 08/12/2021 16:16:31 [id number] MD ALEX [facility] [address] [address] 01/05/2022 00:00:00 01/05/2022 10:42:06 [id number] MD YELENA [facility]oder[facility] [address] [address] 09/13/2022 14:39:45 09/13/2022 15:24:43 Anxiety 02850440 F41.9 change to Bupropion Gastroesop hageal reflux disease 147942800 K21.9 meds help Hyperlipidemia 25480197 E78.5 labs better Obesity 809871952 E66.9 advised to watch diet and lose Sleep apnea 03708407 G47 .30 mild Adult heal th examination 841816410 Z00.00 COVID Vacc 04/19 & 05/17/20 ModernaFLu - 12/2021 Depression screening 171 038087 Z13.31 negative Malignant neoplasm of skin 110229239 C44.90 seeing derm, no recurrence Body mass index 30+ - obesity 930043627 Z68.31 healthy diet and exercise discussed [id number] Chitra Sargent MD [facility] Internal [address] [address] 01/04/2023 15:50:33 01/04/2023 16:16:50 Vasovagal symptom 757212770 R55 has been improvingc , stay hydrated Impacted c erumen of bilateral ears 2525724624 288438 H61.23 care discussed [id number] Chitra Sargent MD S_[facility] Internal [address] [address] 01/12/2023 16:26:26 01/12/2023 17:20:34 Impacted cerumen of bilateral ears 7576349157 871054 H61.23 irrigated with water and syringe,al l the wax removedtm and canals nl [id number] Chitra Sargent MD S[facility] Internal Med [address] [address] 01/17/2023 16:28:06 01/17/2023 16:49:06 Anxiety 46831504 F41.9 under control Gastroesop hageal reflux disease 757811059 K21.9 meds help Hyperlipidemia 94003253 E78.5 labs better Obesity 017764973 E66.9 advised to watch diet and lose more Sleep apnea 42831984 G47 .30 mild , no interventi on Adult heal th examination 700881197 Z00.00 COVID Vacc 04/19 & 05/17/20 ModernaFLu - 12/2021 Skin lesion 52485222 L98 .9 [id number] Chitra Sargent MD [facility] Internal [address] [facility] [place] [address] 06/28/2023 15:03:41 06/28/2023 15:30:40 Anxiety 65493453 F41.9 under control, much better Gastroesop hageal reflux disease 896972275 K21.9 meds help Hyperlipidemia 03547734 E78.5 under control Obesity 106213459 E66.9 advised to watch diet and lose Sleep apnea 37634163 G47 .30 mild , no interventi on Adult heal th examination 007119055 Z00.00 COVID Vacc 04/19 & 05/17/20 ModernaFLu - 12/2021 [id number] Debra Qureshi MD [facility] ENT [place] [address] [place] [address] 10/27/2023 15:18:38 10/28/2023 12:48:03 Chronic sinusitis 80872178 J32.9 [id number] Chitra Sargent MD [facility] Internal Med [facility] [address] [facility] [place] [address] 11/03/2023 16:15:22 11/03/2023 17:02:07 Anxiety 31253407 F41.9 under control, Gastroesop hageal reflux disease 438419241 K21.9 meds help Hyperlipidemia 42861966 E78.5 under control Obesity 134626534 E66.9 advised to watch diet and lose, to do exercise Sleep apnea 27569122 G47 .30 mild , no interventi on Adult heal th examination 333814438 Z00.00 COVID Vacc 04/19 & 05/17/20 ModernaFlu -- 2022- per pt [id number] Chitra Sargent MD [facility] Internal Med [address] [facility] [place] [address] 03/08/2024 16:23:36 03/08/2024 17:09:40 Anxiety 17012446 F41.9 under control with meds Gastroesop hageal reflux disease 291600191 K21.9 meds help Hyperlipidemia 08238390 E78.5 under control Obesity 147866050 E66.9 advised to watch diet and lose, to do exercise Sleep apnea 63577707 G47 .30 mild , no interventi on Adult heal th examination 969220131 Z00.00 Mammogram- 02/15/2024 COVID Vacc 04/19 & 05/17/20 ModernaFlu -- 2022- per pt Irritable bowel syndrome 48541068 K58.9 [id number] Chitra Sargent MD [facility] Internal Med [facility] [address] [facility] [place] [address] 07/05/2024 16:10:40 07/05/2024 16:43:35 Anxiety 77915383 F41.9 under control with meds Gastroesop hageal reflux disease 355951938 K21.9 meds help Hyperlipidemia 76744422 E78.5 under control Obesity 850669693 E66.9 advised to watch diet and lose Sleep apnea 02662303 G47 .30 mild , no interventi on Adult heal th examination 602727106 Z00.00 Mammogram- 02/15/2024 COVID Vacc 04/19 & 05/17/20 ModernaFlu -- 2023- per pt Irritable bowel syndrome 21231513 K58.9 meds help Episodic migraine 341517 3095 27164 G43.909 7668210662 Nurtec 75 mg samples samples, [facility] [id number] Chitra Sargent MD [facility] Internal [facility] [facility] [place] [address] 11/01/2024 16:07:13 11/01/2024 16:41:02 Anxiety 48896797 F41.9 under control with meds Gastroesop hageal reflux disease 339680916 K21.9 meds help Hyperlipidemia 34706424 E78.5 under control Obesity 639596101 E66.9 advised to watch diet and lose more Adult heal th examination 359296822 Z00.00 Mammogram- 02/15/2024 COVID Vacc 04/19 & 05/17/20 ModernaFlu -- 2023- per pt Episodic migraine 790294 2245 18831 G43.909 0412573178 Nurtec 75 mg helps Health Concerns Section Related Observation LastModified by Organization Detai ls LastModified Time None Recorded Concern Status LastModified by Organization Details LastModified Time None Recorded Advance Directives Directive N: Payers Insurance Date Sequence Insurance Name Policy Number Policy Hoffman Covered Member ID Hoffman Member ID Guarantor Name 10/29/[address] [facility] ([id number]) [id number] Kavitha Aden [id number] Kavitha Aden 03/08/2024 2 [facility] ([facility]) [id number] Santino Aden [id number] Kavitha Aden Notes Date Note Type Note Provider Name and Address Organization Details Recorded Time 10/27/2023 text/html This patient reports a years long history of recurrent sinusitis. She has 3-4 episodes a year. She use Augmentin recently but she relapsed immediately. If taking [id number] allergy medications as well. Debra Qureshi MD [address], [place], [address], [place] 10/27/2023 15:44:19 11/03/2023 text/html Here today for routine f/u, compliant to medsAnxiety- no depression symptoms, no sleep problems, no suicidal thoughtsMeds- Bupropion 300mg and Fluoxetine 20mg dailyGERD- symptoms are better with meds, seen GI Dr Bennett- Pantoprazole as neededObesity- Has not lost any wt IBS- sees Dr. Marie on meds and helpsMeds- Viberzi 75mg dailyMild sleep apnea- home sleep study was done 08/19, may need in lab sleep study if gets more symptomsPre cancer skin lesion, used Fluorouracil cream, seen derm , has had them removed Chitra Sargent MD [address], [place], [address], [place] 11/03/2023 17:00:54 03/08/2024 text/html Here today for routine f/u, compliant to medsAnxiety- no depression symptoms, no sleep problems, no suicidal thoughtsMeds- Bupropion 300mg and Fluoxetine 20mg dailyGERD- symptoms are better with meds, seen GI Dr Bennett- Pantoprazole as neededObesity- Has gained weight IBS- Has been seeing Dr. Marie but he retired. on meds and helpsWants to know if we would take over the refillsMeds- Viberzi 75mg dailyMild sleep apnea- home sleep study was done 08/19, may need in lab sleep study if gets more symptomsPre- cancer skin lesion, used Fluorouracil cream, seen derm , has had them removed Chitra Sargent MD [address] [facility], [address], [place], [address], [place] 03/08/2024 17:08:57 07/05/2024 text/html Here today for routine f/u, compliant to medsPT IS NOT FASTING ( [facility] ) Anxiety- no depression symptoms, no sleep problems, LOTS OF STRESS DUE TO FAMILY ISSUESMeds- Bupropion 300mg and Fluoxetine 20mg dailyGERD- symptoms are better with meds, seen GIMeds- Pantoprazole as neededObesity- Gained 1 lb IBS- Had been seeing Dr. Marie but he retired. on meds and helpsMeds- Viberzi 75mg dailyMild sleep apnea- home sleep study was done 08/19, may need in lab sleep study if gets more symptomsPre- cancer skin lesion, used Fluorouracil cream, seen derm , has had them removed Headache- get episode once a month with nausea, sleep helps, meds does not help, photophobia, phonophobia, smell make sit worse Chitra Sargent MD [address], [address], [place], [address], [place] 07/05/2024 17:01:18 11/01/2024 text/html Here today for routine f/u, compliant to medsPT IS NOT FASTING ( [facility] ) Anxiety- no depression symptoms, no sleep problems, no suicidal thoughtsMeds- Bupropion 300mg and Fluoxetine 20mg dailyGERD- symptoms are better with meds, seen GIMeds- Pantoprazole as neededObesity- lost 1lb IBS- Had been seeing Dr. Marie but he retired. on meds and helpsMeds- Viberzi 75mg dailyMild sleep apnea- home sleep study was done 08/19 Pre- cancer skin lesion, used Fluorouracil cream, seen derm , has had them removed Migraine Headache- get episode once a month with nausea, gets photophobia and phonophobia, sleep helps, meds does not help, photophobia, phonophobia, smell make sit worseMeds- Nurtec helps a lot Chitra Sargent MD [address] [facility], [facility] [address], [place], [address], [place] [facility] 11/01/2024 16:57:32 OBGyn Episode No OBEpisode recorded.
[2025-02-07] MEDS: LACTATED RINGERS 1,000 ML 30 ML IV CONT ×2 (06:30→09:00)
--- NOTE | 2025-02-07 07:01 | WPDANESEPPF ---
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 Patient Data Age: 39 Gender: F Height: 1.63 m Weight: 79.54 kg Allergies Allergy/AdvReac Type Severity Reaction Status Date / Time No Known Allergies Allergy Verified 02/04/25 09:31 Home Medications ?Medication ?Instructions ?Recorded ?Confirmed ?Type pantoprazole 40 mg tablet,delayed 40 mg PO QAM PRN Acid Reflux 05/26/21 02/04/25 History release bupropion HCl 300 mg 24 hr tablet, 300 mg PO DAILY 11/18/22 02/04/25 History extended release eluxadoline 75 mg tablet (Viberzi) 75 mg PO DAILY 11/18/22 02/04/25 History fluoxetine 20 mg capsule 20 mg PO DAILY 11/18/22 02/04/25 History Patient hx anesthesia problems: none Family hx anesthesia problems: none Results Review: All pre-operative results and documents have been reviewed as part of the pre-operative evaluation. [facility] Past Medical History Medical History Screening mammogram, encounter for Carpal tunnel syndrome of left wrist IBS (irritable bowel syndrome) rx meds Carpal tunnel syndrome, right upper limb Dizziness Heartburn Anxiety Surgical History Surgical History History of hysteroscopy (11/25/22) Hysteroscopy with uterine curettings / Endometrial ablation History of tubal ligation (08/17/23) Family History Family History Mother Breast cancer Hypertension Grandparent Diabetes mellitus maternal grandfather Hypertension maternal grandmother Malignant neoplasm of lung paternal grandfather Malignant neoplasm of bone paternal grandmother Pulmonary embolism maternal grandmother Father , 73 Blood disorder Depression Other Rheumatoid arthritis Social History Social History Smoking status: Never smoker Second hand tobacco smoke exposure: No Alcohol intake: current Alcohol use details: 1-2 times a year Substance use: never Substance use type: does not use Lack of Transportation: No Lack of Food: Never True Current Housing: I Have Housing Concerned About Future Housing: No Difficulty Paying Gas/Electric Bills: YES Difficulty Paying for Meds: No Currently Unemployed: No Education: Bachelor's Degree Difficulty w/ Childcare or Family Care: No Living arrangements: with family Additional living arrangements comments: 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/Education: 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 Gender identity (if verbalized by the patient): Female Sexual Orientation (if Verbalized by the Patient): Straight or Heterosexual Spiritual care concerns: No Anes - Eval Final PreProcedure Day of Procedure 02/07/25 07:01 Patient weight: obese Heart: regular rate and rhythm Lungs: clear to auscultation Airway: Mallampati scale class II Neurological: alert and oriented Last oral intake: >/= 8 hours ASA classification: II Emergent: no Anesthetic plan: proceed Anesthesia type and monitoring: general ETT and standard monitoring Results Review: All pre-operative results and documents have been reviewed as part of the pre-operative evaluation. Informed Consent: The patient's anesthetic plan and its attendant risks and benefits were discussed with the patient/family/POA. Questions were solicited and answers provided to the satisfaction of the patient/family/POA.
--- NOTE | 2025-02-07 07:05 | WPDANESEPPF ---
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 Patient Data Age: 39 Gender: F Height: 1.63 m Weight: 79.54 kg Allergies Allergy/AdvReac Type Severity Reaction Status Date / Time No Known Allergies Allergy Verified 02/04/25 09:31 Home Medications ?Medication ?Instructions ?Recorded ?Confirmed ?Type pantoprazole 40 mg tablet,delayed 40 mg PO QAM PRN Acid Reflux 05/26/21 02/04/25 History release bupropion HCl 300 mg 24 hr tablet, 300 mg PO DAILY 11/18/22 02/04/25 History extended release eluxadoline 75 mg tablet (Viberzi) 75 mg PO DAILY 11/18/22 02/04/25 History fluoxetine 20 mg capsule 20 mg PO DAILY 11/18/22 02/04/25 History Patient hx anesthesia problems: none Family hx anesthesia problems: none Results Review: All pre-operative results and documents have been reviewed as part of the pre-operative evaluation. ON LICENSE OF [facility] Past Medical History Medical History Screening mammogram, encounter for Carpal tunnel syndrome of left wrist IBS (irritable bowel syndrome) rx meds Carpal tunnel syndrome, right upper limb Dizziness Heartburn Anxiety Surgical History Surgical History History of hysteroscopy (11/25/22) Hysteroscopy with uterine curettings / Endometrial ablation History of tubal ligation (08/17/23) Family History Family History Mother Breast cancer Hypertension Grandparent Diabetes mellitus maternal grandfather Hypertension maternal grandmother Malignant neoplasm of lung paternal grandfather Malignant neoplasm of bone paternal grandmother Pulmonary embolism maternal grandmother Father , 73 Blood disorder Depression Other Rheumatoid arthritis Social History Social History Smoking status: Never smoker Second hand tobacco smoke exposure: No Alcohol intake: current Alcohol use details: 1-2 times a year Substance use: never Substance use type: does not use Lack of Transportation: No Lack of Food: Never True Current Housing: I Have Housing Concerned About Future Housing: No Difficulty Paying Gas/Electric Bills: YES Difficulty Paying for Meds: No Currently Unemployed: No Education: Bachelor's Degree Difficulty w/ Childcare or Family Care: No Living arrangements: with family Additional living arrangements comments: Occupation/Education: 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 Gender identity (if verbalized by the patient): Female Sexual Orientation (if Verbalized by the Patient): Straight or Heterosexual Spiritual care concerns: No Anes - Eval Final PreProcedure Day of Procedure 02/07/25 07:05 Patient weight: overweight Heart: regular rate and rhythm Lungs: clear to auscultation Airway: Mallampati scale class II Neurological: alert and oriented Last oral intake: >/= 8 hours ASA classification: II Emergent: no Anesthetic plan: proceed Anesthesia type and monitoring: general ETT and standard monitoring Results Review: All pre-operative results and documents have been reviewed as part of the pre-operative evaluation. Informed Consent: The patient's anesthetic plan and its attendant risks and benefits were discussed with the patient/family/POA. Questions were solicited and answers provided to the satisfaction of the patient/family/POA.
--- NOTE | 2025-02-07 07:22 | WPDHPUPDATE1 ---
History and Physical Update Update Date/Time: 02/07/25 07:22 History and Physical has been reviewed, including an updated exam of the patient. There are NO changes in the patient's condition. Risks, benefits, and alternatives have been discussed and questions answered. Patient agrees to proceed with procedure.
[2025-02-07] MEDS: SCOPOLAMINE 1 MG PATCH 1 PATCH TRANSDERM (07:26)
[2025-02-07] MEDS: ACETAMINOPHEN 500 MG TABLET 1000 MG PO ×3 (07:26→19:00)
[2025-02-07] MEDS: KETOROLAC 15 MG/ML VIAL (*BKC) IV PUSH (07:26)
[2025-02-07] MEDS: ceFAZolin 2 GM in SODIUM CHLORIDE 0.9% IV 50 ML 100 ML IVPB (07:36)
--- NOTE | 2025-02-07 08:24 | S_PTH ---
PATIENT: Kavitha Aden LOC: [facility] U#:[id number] AGE/SX: 39/F ROOM: RE02/07/[address]: Vidal Lee MD : 1985 BED: DIS: 02/08/2025 SPEC #: [id number] RECD: 02/07/25 09:55 STATUS: SUDHA REQ #: [id number] BRITTNEY: 02/07/25 08:[address]: Vidal Lee DEPT: [facility] Surgical RECD BY: Mckenna Navarro ENTERED: 02/07/25 09:55 SP TYPE: Surgical OTHR DR: Ronnie SargentMD Tissues: A - Uterus Procedures: Hematoxylin and Eosin Stain Gross and Microscopic Level 5
--- NOTE | 2025-02-07 08:51 | W.PM.PROC2 ---
Procedure Note - Detailed Date of Procedure 02/07/25 Pre-op Diagnosis Post endometrial ablation syndrome Post-op Diagnosis Same Procedure Performed robotic assisted total laparoscopic hysterectomy (no oophorectomy) Surgeon Vidal Lee MD Anesthesia General Findings enlarged/globular uterus tubes absent ovaries without abnormality Description of Procedure patient prepped draped in usual manner for this procedure. Cervical instruments were placed for mobility throughout the case. Abdominal trocar sites were marked and trocars were placed under direct visualization. Once this was undertaken the instruments were attached to the de Lucia system and placed through the ports. Surgeon moved to the console round ligament bilaterally cauterized and cut bladder flap developed without difficulty. Posterior leaf the broad ligament was also incised without difficulty. Utero-ovarian ligaments were cauterized and cut to remove the of ovaries out of the operative field. Uterine vessels were skeletonized, cauterized and cut. Posterior colpotomy incision was made this was carried circumferentially around the cervix to separate the cervix from the vagina. Specimen was delivered into the vagina without difficulty. Vaginal cuff was then closed using V lock suture from the right angle to midline and the left angle midline with good approximation hemostasis noted. Irrigation was undertaken nose bleeding. Silva was placed empirically. Gas was allowed to escape, trocars removed, incisions approximated 4-0 Monocryl. Patient was then sent to the recovery room in stable condition. Estimated Blood Loss 100 Drains No Packing No Pathology Yes Complications No immediate complications Condition Stable Disposition PACU [facility] Billing Surgery - Charge Forward: Surgery Billing
[2025-02-07] MEDS: fentaNYL CITRATE INJ (*CRX) 100 MCG/2 ML VIAL 25 MCG IV PUSH ×6 (09:15→10:10)
--- NOTE | 2025-02-07 10:20 | ADMGEN ---
This patient, Kavitha Aden, was admitted to OB 2nd Floor Room 288-00. Patient/family oriented to hospital policies and general routines including ID bracelet, bed and alarms, visiting hours, pain management, procedures, bathroom and other care routines, personal items, smoking policy, room service/diet, and visiting hours. Information on how to activate the Rapid Response Team has been discussed. Patient/Family are encouraged to report perceived risks to care and to ask questions if they do not understand what they are told or what they should do.
[2025-02-07] MEDS: oxyCODONE HCL (*CRX) 5 MG TAB IR 10 MG PO (10:55)
[2025-02-07] MEDS: SIMETHICONE 80 MG TAB.CHEW PO ×2 (13:00→17:00)
[2025-02-07] MEDS: KETOROLAC 30 MG/ML VIAL (*BKC) IV PUSH ×2 (13:00→19:00)
[2025-02-07] MEDS: DOCUSATE SODIUM 100 MG CAPSULE PO ×2 (13:01→17:00)
[2025-02-07] MEDS: oxyCODONE HCL (*CRX) 5 MG TAB IR PO (17:00)
[2025-02-08] MEDS: oxyCODONE HCL (*CRX) 5 MG TAB IR PO ×2 (00:07→07:11)
[2025-02-08 00:55] VITALS: BP 102/62; PULSE 70; RESP 16; TEMP 36.7; O2SAT 100
[2025-02-08] MEDS: ACETAMINOPHEN 500 MG TABLET 1000 MG PO ×2 (00:58→07:11)
[2025-02-08] MEDS: KETOROLAC 30 MG/ML VIAL (*BKC) IV PUSH (00:58)
[2025-02-08 04:50] VITALS: BP 103/65; PULSE 72; RESP 16; TEMP 36.8; O2SAT 100
[2025-02-08 04:51] LABS: Hematocrit 34.6 % (37.0-47.0); Hemoglobin 11.6 g/dL (12.0-15.0); Immature Granulocyte Percent A 0.4 % (0-0.5); Lymphocytes Absolute Auto 1.42 K/mm3 (0.9-3.2); Mean Corpuscular HGB Conc 33.5 g/dl (32-36); Mean Corpuscular Hemoglobin 30.3 pg (26-34); Mean Corpuscular Volume 90.3 fl (80-100); Nucleated Red Blood Cells Absolute Auto 0.000 K/mm3 (0.0-0.012); Nucleated Red Blood Cells Perc 0.0 % (0.0-0.2); Platelet Count Result 170 k/mm3 (150-375); Red Blood Count 3.83 M/mm3 (4.2-5.4); White Blood Count 11.4 K/mm3 (4.5-10.0)
[2025-02-08] MEDS: IBUPROFEN 600 MG TABLET PO (07:11)
[2025-02-08] MEDS: SIMETHICONE 80 MG TAB.CHEW PO (07:11)
[2025-02-08 08:15] VITALS: BP 96/56; PULSE 64; RESP 16; TEMP 37.1; O2SAT 97
[2025-02-08] MEDS: DOCUSATE SODIUM 100 MG CAPSULE PO (08:59)
[2025-02-08] MEDS: buPROPion HCL XL (24 HR) 150 MG TABCR 300 MG PO (08:59)
== END 2025-02-08 09:10 | disposition home or self-care (01) ==
LOC: ANHSURGERY 07:53 → ANHOB2 10:28
PROVIDERS: PCP Internal Medicine; Visit Provider Obstetrics & Gynecology
PROC: (CPT 58570; principal; 2025-02-07 07:30)
DX: N99.85 Post endometrial ablation syndrome (principal); N88.8 Other specified noninflammatory disorders of cervix uteri
CPT/HCPCS: 58570; S2900; 36415; 85025; 88307; 99199; J0690; A9270; J1885; J2003; J2250; J2405; J2704; J3010; J7030; J7120; Q9968

== ENCOUNTER 2025-02-26 10:07 | Outpatient (CLI) | payer OTHER, SELFPAY ==
--- NOTE | ~2025-02-26 | MM_ITS ---
EXAMINATION: MM screening [facility] BI w promise HISTORY: Z12.31 - Encounter for screening mammogram for malignant ... TECHNIQUE: Craniocaudal and mediolateral oblique 3-D tomosynthesis images were obtained and synthetic 2-D images were generated. CAD analysis was submitted and interpreted. COMPARISON: 2023 BREAST PARENCHYMAL COMPOSITION: The breast tissue is heterogeneously dense, which may obscure small masses. FINDINGS: No suspicious masses are seen. There are no suspicious calcifications. No unexplained architectural distortion is seen. There are no skin or nipple abnormalities identified. There is no adenopathy seen on the images submitted. IMPRESSION: No mammographic evidence to suggest malignancy is seen. The patient may return to screening mammography as per ACR guidelines. BI-RADS 1 - Negative. Reviewed, dictated and finalized at location [facility]
== END 2025-02-26 10:08 | disposition home or self-care (01) ==
LOC: MICIMG 10:08
PROVIDERS: PCP Obstetrics & Gynecology; Visit Provider Obstetrics & Gynecology
DX: Z12.31 Encounter for screening mammogram for malignant neoplasm of breast (principal)
CPT/HCPCS: 77063; 77067